=== PATIENT | female | born 1950 | race Caucasian/White ===

== ENCOUNTER → 2023-11-23 08:40 | Outpatient (REF) | payer MEDICARE, BC, SELFPAY | LOC: RAD 08:40 | PROVIDERS: ATTENDING PHYSICIAN Internal Medicine Hematology & Oncology; FAMILY PHYSICIAN Physician Assistant Medical | DX: R22.41 Localized swelling, mass and lump, right lower limb (principal) | CPT/HCPCS: 73660; 76882 ==

== ENCOUNTER → 2024-02-17 07:40 | Outpatient (REF) | payer MEDICARE, BC, SELFPAY | LOC: RAD 07:40 | PROVIDERS: ATTENDING PHYSICIAN Surgery Vascular Surgery; FAMILY PHYSICIAN Physician Assistant Medical; REFERRING PHYSICIAN Podiatrist Foot Surgery | DX: L08.9 Local infection of the skin and subcutaneous tissue, unspecified (principal) | CPT/HCPCS: 93922; 93925 ==

== ENCOUNTER → 2024-02-25 10:25 | Outpatient (REF) | payer OTHER, SELFPAY | LOC: HWRAD 10:25 | PROVIDERS: ATTENDING PHYSICIAN Psychiatry & Neurology Neurology; FAMILY PHYSICIAN Physician Assistant Medical | DX: M46.1 Sacroiliitis, not elsewhere classified (principal); K59.03 Drug induced constipation; Z79.891 Long term (current) use of opiate analgesic; Z51.81 Encounter for therapeutic drug level monitoring; M47.816 Spondylosis without myelopathy or radiculopathy, lumbar region; I10 Essential (primary) hypertension; M96.1 Postlaminectomy syndrome, not elsewhere classified | CPT/HCPCS: 72192 ==

== ENCOUNTER → 2024-05-17 13:17 | Outpatient (REF) | payer MEDICARE, BC, SELFPAY ==
[2024-05-17 14:42] LABS: % Basophils 2.1 % (0-2); % Eosinophils 4.2 % (0-6); % Immature Granulocytes 0.7 % (0-0.5); % Lymphocytes 22.4 % (20.5-51.1); % Monocytes 10.5 % (1.7-9.3); % Neutrophils 60.1 % (42.2-75.2); Absolute Basophils 0.1 10^3/uL (0-0.2); Absolute Eosinophils 0.1 10^3/uL (0-0.7); Absolute Lymphocytes 0.6 10^3/uL (1.2-3.4); Absolute Monocytes 0.3 10^3/uL (0.1-0.6); Absolute Neutrophils 1.7 10^3/uL (1.4-6.5); Hematocrit 36.8 % (37.0-47.0); Hemoglobin 12.9 g/dL (12.0-16.0); Mean Corp Hgb Conc. 35.1 g/dL (33.0-37.0); Mean Corpuscular Hgb 32.6 pg (27.0-31.0); Mean Corpuscular Volume 92.9 fL (81.0-99.0); Mean Platelet Volume 10.4 fL (7.4-10.4); Nucleated Red Blood Cells % 0 %; Platelet Count 157 10^3/uL (130-400); Red Blood Cell Count 3.96 10^6/uL (4.20-5.40); Red Cell Dist. Width 12.9 % (11.5-14.5); White Blood Cell Count 2.9 10^3/uL (4.8-10.8)
[2024-05-17 14:56] LABS: ALT (SGPT) 27 U/L (0-35); AST (SGOT) 24 U/L (14-36); Albumin 4.2 g/dl (3.5-5.0); Alkaline Phosphatase 68 U/L (38-126); Blood Urea Nitrogen 24 mg/dl (7-17); Calcium 9.3 mg/dl (8.4-10.2); Carbon Dioxide 32 mmol/L (22-30); Chloride 102 mmol/L (98-107); Glucose 115 mg/dl (70-99); Potassium 4.2 mmol/L (3.5-5.1); Sodium 143 mmol/L (135-145); Total Bilirubin 1.1 mg/dl (0.2-1.3); Total Protein 6.5 g/dl (6.3-8.2); eGFR > 60.00
== END ==
LOC: REG 13:17
PROVIDERS: ATTENDING PHYSICIAN Internal Medicine Hematology & Oncology; FAMILY PHYSICIAN Physician Assistant Medical
DX: C90.00 Multiple myeloma not having achieved remission (principal)
CPT/HCPCS: 36415; 80053; 82784; 83521; 84155; 84165; 85025; 86334

== ENCOUNTER → 2024-05-19 12:34 | Outpatient (REF) | payer MEDICARE, BC, SELFPAY | LOC: PAVMRI 12:34 | PROVIDERS: ATTENDING PHYSICIAN Physician Assistant Surgical; FAMILY PHYSICIAN Physician Assistant Medical | DX: M46.1 Sacroiliitis, not elsewhere classified (principal); M96.1 Postlaminectomy syndrome, not elsewhere classified; M47.816 Spondylosis without myelopathy or radiculopathy, lumbar region | CPT/HCPCS: 72148 ==

== ENCOUNTER → 2024-09-21 16:28 | Outpatient (REF) | payer MEDICARE, BC, SELFPAY | LOC: RAD 16:28 | PROVIDERS: ATTENDING PHYSICIAN Physician Assistant Medical | DX: G44.319 Acute post-traumatic headache, not intractable (principal); R51.9 Headache, unspecified | CPT/HCPCS: 70150; 70450 ==

== ENCOUNTER → 2025-04-02 10:29 | Outpatient (REF) | payer MEDICARE, BC, SELFPAY | LOC: EMG 10:29 | PROVIDERS: ATTENDING PHYSICIAN Psychiatry & Neurology Neurology; FAMILY PHYSICIAN Physician Assistant Medical | DX: M54.17 Radiculopathy, lumbosacral region (principal); R20.0 Anesthesia of skin | CPT/HCPCS: 95886; 95908 ==

== ENCOUNTER 2025-07-02 15:23 | Inpatient (IN) | payer MEDICARE, BC, SELFPAY ==
[2025-07-02] VITALS (8 sets, daily range): BP systolic 126–172; BP diastolic 55–94; BMI 27.2; BMI 26.3
[2025-07-02] MEDS: ZOFRAN 4 MG IV (02:28)
[2025-07-02] MEDS: DILAUDID 0.5 MG IV ×4 (02:29→11:40)
[2025-07-02 02:57] LABS: Hematocrit 37.0 % (37.0-47.0); Hemoglobin 12.7 g/dL (12.0-16.0); Mean Corp Hgb Conc. 34.3 g/dL (33.0-37.0); Mean Corpuscular Volume 90.0 fL (81.0-99.0); Nucleated Red Blood Cells % 0 %; Platelet Count 188 10^3/uL (130-400); Red Cell Dist. Width 13.9 % (11.5-14.5)
[2025-07-02] MEDS: TORADOL 15 MG IV ×4 (03:09→22:32)
[2025-07-02 03:16] LABS: ALT (SGPT) 28 U/L (0-35); AST (SGOT) 23 U/L (14-36); Albumin 4.2 g/dl (3.5-5.0); Alkaline Phosphatase 52 U/L (38-126); Blood Urea Nitrogen 27 mg/dl (7-17); Calcium 8.8 mg/dl (8.4-10.2); Carbon Dioxide 33 mmol/L (22-30); Chloride 101 mmol/L (98-107); Estimated Creatinine Clearance 62 ml/min; Glucose 101 mg/dl (70-99); Potassium 3.4 mmol/L (3.5-5.1); Sodium 137 mmol/L (135-145); Total Protein 6.7 g/dl (6.3-8.2); eGFR > 60.00
[2025-07-02] MEDS: NSS 1000 IV (03:59)
--- NOTE | 2025-07-02 04:54 | ED.GENMED ---
History of Present Illness
General
Chief Complaint: Back Pain
Time Seen by Provider: 07/02/25 02:02
History of Present Illness
History of Present Illness:
Note:
CHIEF COMPLAINT(S)
Weakness, urinary frequency and incontinence, worsening back pain, and leg weakness.
HISTORY OF PRESENT ILLNESS
The patient is a 74-year-old female who initially presented with weakness after experiencing a fall five weeks ago. During the fall, while in [place], she did not receive immediate medical attention. The following day, however, she was
diagnosed with a subarachnoid hemorrhage in [place] after presenting to the ER with altered mental status. Thereafter, she had some improvement but experienced a recent exacerbation of symptoms following a flight back home.
Today, the patient reports increased weakness in the legs, difficulty with movement, and frequent urination that was not as severe when she was staying with family prior to her flight. She also experiences leg jumping, which is new today, and
increased shuffling when walking. Additionally, she is experiencing episodes of urinary frequency with significant urgency, although she remains continent. The leg weakness and back pain have also worsened recently. Furthermore, there is a history
of constipation, although no bowel incontinence has been reported. She describes a recent reemergence of confusion and headache, which was previously a 10 out of 10 in pain severity.
Plan includes imaging studies of the head and lumbar spine to assess for potential causes such as cauda equina syndrome and urinary tract infection.
PAST MEDICAL AND SURIGICAL HISTORY
Subarachnoid hemorrhage five weeks prior to this visit following a fall. The history includes post-fall urinary issues likely related to catheterization.
ADDITIONAL HISTORY OBTAINED FROM SOURCES OTHER THAN THE PATIENT
Per the patient�s daughter, the patient had a fall five weeks ago. She was initially seen at an emergency room and diagnosed with a subarachnoid hemorrhage. The patient has been experiencing increasing difficulty in mobility and increased urinary
frequency. The daughter reported challenges in securing adequate medical records and care coordination during the patients time in [place]. The patient�s situation has worsened enough to necessitate increased caregiving support at home, leading
to this current medical evaluation.
EXTERNAL RECORDS REVIEWED
The conversation mentions unsuccessful attempts to acquire medical records from the patients hospital stay in [place], despite efforts to request them for continuity of care.
SOCIAL DETERMINANTS AFFECTING HEALTH
Per the patient�s daughter, there were significant logistic and care coordination issues during the patients stay in [place], impacting her access to timely and consistent healthcare. Additionally, there is a mention of the increased need for
caregiving support at home due to the patients medical needs.
REVIEW OF SYSTEMS
- Neurological: Weakness in legs, jumping legs, worsening leg movement, occasional confusion.
- Genitourinary: Increased urinary frequency with urgency but maintained continence.
- Musculoskeletal: Back pain, worsening leg weakness and shuffling gait.
PHYSICAL EXAM
General: Alert, no acute distress.
Skin: Warm, dry.
Head: Normocephalic, atraumatic.
Neck: Supple, trachea midline.
Eye Ears, Nose, Mouth, and Throat: Oral mucosa moist.
Cardiovascular: Normal peripheral perfusion, no edema.
Respiratory: Respirations are non-labored.
Gastrointestinal: Abdomen nondistended
Back: Normal range of motion, normal alignment.
Musculoskeletal: Normal ROM, normal strength.
Neurological: Alert and oriented to person, place, time, and situation, no focal neurological deficit observed.
Psychiatric: Cooperative, appropriate mood & affect.
PROBLEM LIST
Acute:
- Subarachnoid hemorrhage, status post recent fall.
- Urinary frequency and incontinence.
- Worsening back pain and leg weakness.
PLAN
1. Perform a computed tomography scan of the head to reassess the subarachnoid hemorrhage.
2. Conduct lumbar spine imaging to evaluate for possible cauda equina syndrome.
3. Evaluate urine for urinary tract infection.
4. Administer morphine for the management of pain.
DIFFERENTIAL DIAGNOSIS
The Differential Diagnosis includes, in no particular order and is not limited to:
1. Urinary tract infection
2. Cauda equina syndrome
3. Neurological effects post-subarachnoid hemorrhage
4. Spinal stenosis
5. Lumbar radiculopathy
6. Depression or anxiety contributing to symptoms
7. Adverse effects of medications
8. Sacral fracture or injury
9. Diabetic neuropathy
10. Aging-related functional decline
Disposition:
SUMMARY OF ENCOUNTER
The patient, a 74-year-old female, presented with exacerbated low back pain and urinary incontinence upon returning home from a five-week stay in [place]. Initially diagnosed with a subarachnoid hemorrhage during her stay, she was cleared to fly
home, but symptoms worsened upon landing. The patients nurse noted new episodes of incontinence over the past week. While she maintains some bladder control, she experienced increasing incontinence. During her visit to the emergency department, she
received multiple doses of pain medication for pain management. Due to persistent symptoms, the decision was made to admit her to the hospital for further evaluation and possible imaging.
DISPOSITION
Admit
PLAN
Admit the patient for further evaluation, management of low back pain, and urinary incontinence. Possible further imaging to be considered.
MEDICATION RECONCILIATION
The patient received multiple doses of pain medication during the emergency department visit.
MEDICAL DECISION MAKING
- Number and Complexity of Problems Addressed: Chronic conditions affecting care including acute exacerbation of back pain, subarachnoid hemorrhage history, and urinary incontinence. Differential Diagnosis includes urinary tract infection, cauda
equina syndrome, neurological effects post-subarachnoid hemorrhage, spinal stenosis, lumbar radiculopathy, depression or anxiety contributing to symptoms, adverse effects of medications, sacral fracture or injury, diabetic neuropathy, and
aging-related functional decline.
- Risk: The decision to admit was based on the complexity and risk of the patients presenting complaints and worsening symptoms. Social determinants affecting health noted logistics and care coordination issues, which have impacted her health.
Phy Exam
Physical Exam
Physical Exam:
.
Course
Orders/Labs/Results
Orders:
Orders
07/02/25 02:20
CT Head W/o Iv Contrast Urgent
Comment:
Reason For Exam: 5wks s/p SAH, weakness
CT Lumbar Spine W/o Iv Contras Urgent
Comment:
Reason For Exam: acute on Chronic LBP, intermittant incontinence
07/02/25 02:26
HYDROmorphone [Dilaudid] 0.5 mg .ROUTE .STK-MED ONE
Ondansetron Injectable [Zofran] 4 mg .ROUTE .STK-MED ONE
07/02/25 02:27
Ondansetron Injectable [Zofran] 4 mg IV NOW STA
07/02/25 02:29
HYDROmorphone [Dilaudid] 0.5 mg IV NOW STA
07/02/25 02:50
Complete Blood Count/With Diff Urgent
Comprehensive Metabolic Panel Urgent
07/02/25 02:59
Ketorolac [Toradol] 15 mg IV NOW STA
07/02/25 04:00
0.9% Sodium Chloride 1000 ml [Nss] 1,000 ml IV 250 mls/hr
07/02/25 04:57
HYDROmorphone [Dilaudid] 0.5 mg IV NOW STA
Abnormal Lab Results
07/02/25
02:50
RBC 4.11 L 10^6/uL
(4.20-5.40)
Absolute Monos (auto) 1.0 H 10^3/uL
(0.1-0.6)
Monocytes % 15.7 H %
(1.7-9.3)
Potassium 3.4 L mmol/L
(3.5-5.1)
Carbon Dioxide 33 H mmol/L
(22-30)
BUN 27 H mg/dl
(7-17)
Glucose 101 H mg/dl
(70-99)
Total Bilirubin 1.6 H mg/dl
(0.2-1.3)
07/02/25 02:50
07/02/25 02:50
Vital Signs
Initial and Last Documented VS:
Initial Vital Signs
Temp Pulse Resp BP Pulse Ox
98 F 104 28 172/94 98
07/02/25 01:45 07/02/25 01:45 07/02/25 01:45 07/02/25 01:45 07/02/25 01:45
Last Documented Vital Signs
Temp Pulse Resp BP Pulse Ox
98 F 86 14 132/55 98
07/02/25 01:45 07/02/25 05:15 07/02/25 05:15 07/02/25 05:00 07/02/25 05:15
*Pulse Oximetry
SaO2: 99
Oxygen Mode of Delivery: Room air
Patient hypoxic: no
*Critical Care Note
Total Time (30-74mins, 75-104mins- exclusive of procedures): Not Applicable
Update Note
Update Note:
NAME: MANUEL ARAUJO
DATE OF EXAM: 07/02/2025
Patient No:
Physician: MARILOU
Date of : 1950
Past Medical History (entered by Technologist):
Reason For Exam (entered by Technologist):
Other Notes (entered by Technologist): PT FELL 5 WEEKS AGO IN [place] HAD SAH. PT FLEW HOME TODAY AND HAS BEEN HAVING WEAKNESS, URINARY INCONTINENCE, RESTLESSNESS, AND BACK PAIN.
Prior sent
Additional Information (per [facility]):
CT HEAD WITHOUT CONTRAST
COMPARISON: 09/21/2024
IMPRESSION:
No acute intracranial hemorrhage. No evidence of acute infarct.
No mass effect or midline shift.
Unchanged ventriculomegaly
Visualized paranasal sinuses and mastoids are clear.
No calvarial lesion.
CT LUMBAR SPINE WITHOUT CONTRAST
COMPARISON: 04/28/2021
IMPRESSION:
Spinal stimulator in the thoracic and lumbar spinal canal entering at L3/4 is unchanged. Interval removal of the other stimulator in the distal thoracic spinal canal.
No fracture or traumatic malalignment.
Unchanged grade 1 anterolisthesis L3 on L4. L4/5, L5/S1 fusion. Interval right sacroiliac joint attempted fusion without definite bridging bone across the joint.
No soft tissue abnormality.
Visualized abdomen is unremarkable.
Case finalized on 07/02/25 04:06 EDT
ED Attending Note
-
Portions of this chart may have been created with voice recognition software.� Occasional wrong word or��sound alike� substitutions may have occurred due to the inherent limitations of voice recognition software.
Discharge Plan
Departure
Patient Disposition: Admit
Date of Disposition: 07/02/25
Time of Disposition: 05:32
Admit to: Telemetry
Presentation/result/management discussed w/ accepting MD/DO: Hospitalist
Discharge Problem:
Low back pain, Subacute urinary incontinence
Prescriptions:
No Action
atorvastatin 40 MG tablet
40 mg PO QPM
venlafaxine 75 MG capsule,extended release 24hr
150 mg PO DAILY
hydromorphone [Dilaudid] 8 MG tablet
8 mg PO HS
lubiprostone 24 MCG capsule
24 mcg PO BID
diclofenac epolamine [Flector] 1 EACH patch 12 hour
1 ea TD Q12H PRN (Reason: pain)
Fentanyl Pump.Resvr
223 mcg INFUSION DAILY
Patient Comments:
with Baclofin 53 ug and bupivicaine 2.3mg via pump over 24 hrs
Lidocaine Patch Patch
5 % topical PRN MDD 3 patches PRN (Reason: pain)
ascorbic acid (vitamin C) 250 MG tablet
500 mg PO DAILY
diphenhydramine HCl [Banophen] 25 MG capsule
50 mg PO HSPRN PRN (Reason: sleep)
calcium carbonate-vitamin D3 1 EACH tablet
1 ea PO BID
cholecalciferol (vitamin D3) [Vitamin D3] 2,000 UNIT capsule
2,000 unit PO DAILY
aspirin 81 MG tablet,delayed release (DR/EC)
81 mg PO DAILY
trazodone 50 MG tablet
100 mg PO HS
methocarbamol [Robaxin-750] 750 MG tablet
750 mg PO Q8 PRN (Reason: pain)
hydromorphone [Dilaudid] 4 MG tablet
4 mg PO BID
Referrals:
Helga Cummings PA [Family Provider, Family Practice]
Interventions
Interventions:
*Risk Screen - Suicide Last Done: 07/02/25 01:45
*General Assessment Last Done: 07/02/25 01:59
*Neglect/Abuse Screening Last Done: 07/02/25 01:45
*ED- Fall Risk Assessment Last Done: 07/02/25 01:59
*ED COVID-19 Vaccine History Last Done: 07/02/25 01:59
*ED Influenza Vaccine History Last Done: 07/02/25 01:59
ED-Musculoskeletal Assessment Last Done: 07/02/25 01:59
Discharge Date and Time
Print Language: WELSH
--- NOTE | 2025-07-02 05:06 | HPS.HSE ---
Family Physician
-
Family Physician: Helga Cummings
Chief Complaint
-
Back pain
History of Present Illness
74-year-old female was past medical history significant for multiple myeloma currently on Revlimid and dexamethasone, chronic urinary symptoms on nitrofurantoin, chronic pain secondary to chronic back pain status post failed back surgery, status
post implanted Medtronic fentanyl close baclofen epidural pain pump, status post spinal stimulator, PVCs, bladder cancer status post tumor excision, presents to the emergency department with intractable back pain, weakness and ambulatory dysfunction.
Patient just returned from a trip to [place]. During that trip about 5 weeks ago he had a fall and suffered subarachnoid hemorrhage. She also had worsening pain and did not undergo appropriate rehabilitation according to daughter. Patient just
arrived back from [place]. During the plane flight she was extremely uncomfortable. It is unclear whether she was able to take her medications as prescribed. She also had incontinence and urinary urgency/frequency as she was getting up and
down several times during the flight and daughter had to help ice time due to weakness and pain. Once they arrived at home patient had significant difficulty with ambulation due to leg weakness and pain and was brought to the emergency department.
She has had multiple exacerbations of back pain in the past but does not appear to be as severe as these. Patient reports chronic numbness and weakness of her lower extremities but not as states that this is worse than baseline. She has urinary
urgency without incontinence for which is also c/o dyspnea. She has no incontinence of the bowel. She has had no fevers or chills. She has no nausea or vomiting.
In the emergency department she was afebrile, blood pressure was 126/57 with a pulse rate of 78 and she was satting 99% on room air.
CBC was unremarkable, electrolytes were stable with a bicarb of 83 BUN and creatinine of 27 and 0.8. Total bilirubin was slightly elevated at 1.6 but otherwise LFTs were normal.
Head CT without contrast was unremarkable for any acute intracranial process. The CT of the lumbar spine shows a spinal stimulator and a thoracic and lumbar spinal canal at the L3/4 which is unchanged. No fracture or traumatic malalignment. There
is evidence of interval right sacroiliac joint attempted fusion without definite bridging bone across the joint.
Medical History
Past Medical History
Past Medical History: Reports Arrhythmia (PVCs), Cancer (Cancer status post excision, multiple myeloma (plasmacytoma)), HTN, Hypercholesterolemia and Other
Additional Past Medical History:
Lumbar disc disease
Herniated disc at L4-5 and L5-S1.
Past Surgical History: Reports Gynocological (Partial hysterectomy), Orthopedic (Right total knee arthroplasty), Urological (Bladder tumor excision) and Other (Stem cell transplantation)
Social History
Tobacco: Non-smoker
Alcohol: None
Drug: None
Family History
Family History: Not pertinent
Allergies / Home Medications
Allergies reflects when Allergies were last updated in [facility].
Home Medications with original date entered in [facility]
Allergy/Medication List:
Allergies
Allergy/AdvReac Type Severity Reaction Status Date / Time
chocolate flavor Allergy Rash Verified 07/02/25 01:48
Penicillins Allergy Rash Verified 07/02/25 01:48
vancomycin Allergy red man Verified 07/02/25 01:48
syndrome
band aid adhesive Allergy Rash Uncoded 07/02/25 01:48
Home Medications
Fentanyl 223 mcg INFUSION DAILY 09/14/18
Lidocaine Patch 5 % topical PRN PRN pain 09/14/18
ascorbic acid (vitamin C) 250 mg tablet 500 mg PO DAILY 09/14/18
atorvastatin 40 mg tablet 40 mg PO QPM 09/14/18
calcium 500 mg (as carbonate)-vitamin D3 3.125 mcg (125 unit) tablet 1 ea PO BID 09/14/18
cholecalciferol (vitamin D3) 50 mcg (2,000 unit) capsule (Vitamin D3) 2,000 unit PO DAILY 09/14/18
diclofenac epolamine 1.3 % transdermal 12 hour patch (Flector) 1 ea TD Q12H PRN pain 09/14/18
diphenhydramine HCl 25 mg capsule (Banophen) 50 mg PO HSPRN PRN sleep 09/14/18
hydromorphone 8 mg tablet (Dilaudid) 8 mg PO HS 09/14/18
lubiprostone 24 mcg capsule 24 mcg PO BID 09/14/18
venlafaxine 75 mg capsule,extended release 24 hr 150 mg PO DAILY 09/14/18
aspirin 81 mg tablet,delayed release 81 mg PO DAILY 12/13/19
methocarbamol 750 mg tablet (Robaxin-750) 750 mg PO Q8 PRN pain 12/13/19
trazodone 50 mg tablet 100 mg PO HS 12/13/19
hydromorphone 4 mg tablet (Dilaudid) 4 mg PO BID 12/25/19
Review of Systems
-
Constitutional: Reports No Symptoms
EENT: Reports No Symptoms
Respiratory: Reports No Symptoms
Cardiac: Reports No Symptoms
Abdomen/GI: Reports No Symptoms
: Reports Frequency and Urgency
Musculoskeletal: Reports Other (Back pain)
Skin: Reports No Symptoms
Neurological: Reports Weakness
Endocrine: Reports No Symptoms
Hematologic/Lymphatic: Reports No Symptoms
Psych: Reports No Symptoms
Physical Exam
Vital Signs
Vital Signs
Temp Pulse Resp BP Pulse Ox
98 F 78 13 126/57 99
07/02/25 01:45 07/02/25 04:45 07/02/25 04:45 07/02/25 04:00 07/02/25 04:55
Physical Exam
General: Pain
HEENT: NormoCephalic, Moist mucous membranes, Atraumatic, PERRLA and [place] Conjunctivae
Respiratory: Clear
Cardiac: S1/S2 and Regular Rhythm; No Murmur or Rub
GI: Soft, Non Tender, Non Distended and Normal Bowel Sounds; No Organomegaly
Rectal: Deferred by Provider
Genito-urinary: Clear Urine
Musculoskeletal: No Clubbing, No Cyanosis and No Edema
Skin: No Rash
Neuro: AO x 3 and No Sensory Deficits; No Slurred Speech or Facial Droop
Psych: Anxious
Laboratory Results
-
07/02/25 02:50
07/02/25 02:50
Laboratory Results
Total Bilirubin 1.6 mg/dl (0.2-1.3) H 07/02/25 02:50
AST 23 U/L (14-36) 07/02/25 02:50
ALT 28 U/L (0-35) 07/02/25 02:50
Alkaline Phosphatase 52 U/L (38-126) 07/02/25 02:50
Data Reviewed
-
CT Scan: Report Reviewed by me
Lab Data: Labs Reviewed by me
Old Records: Reviewed
Impression/Plan
-
IMPRESSION:
74-year-old female with past medical history who back pain with failed back surgery status post Medtronic pain pump, status post spinal stimulator, chronic pain requiring breakthrough opioid medications will presents with exacerbation of chronic
back pain likely in the setting of 4 recent fall and plane flight from [place]. Days associated with weakness in bilateral lower extremities as well as some urinary symptoms. Most likely weakness or secondary to uncontrolled pain but cannot
rule out myelopathy entirely. No recent lumbosacral spine imaging with MRI in our system. Patient likely has a high opioid tolerance and will need aggressive pain control.
PLAN:
Back pain -exhibition of back pain secondary to trauma and recent flight.
� Admit to MedSurg
� Continue patient ongoing pump
� Add acetaminophen [id number]
� Toradol
� Dilaudid 1 mg every 3 hours for breakthrough pain
- Will give 1 dose of Decadron now
� Urinalysis (clean-catch)
� MRI lumbar spine
� PT consultation
Multiple myeloma�
� Continue patient's Revlimid 5 mg at bedtime for the next 21 days
� While on Revlimid continue dexamethasone 4 mg on Wednesday
Hypertension
� Continue losartan and metoprolol
DVT prophylaxis�Lovenox subcu
CODE STATUS�full code
[2025-07-02] MEDS: DILAUDID 1 MG IV ×2 (05:46→08:38)
[2025-07-02] MEDS: DECADRON 10 MG IV (06:29)
--- NOTE | 2025-07-02 07:57 | W.PN.HOSP.TC ---
Today's Communication/Plan
-
pain control
steroids
Brain Lumbar MRI
Neuro eval
PT/OT
Assessment / Plan
Assessment / Plan
Physical Exam
General: mild moderate distress d/t lower back pain
HEENT: NormoCephalic, Moist mucous membranes, Atraumatic, PERRLA and [place] Conjunctivae
Respiratory: Clear
Cardiac: S1/S2 and Regular Rhythm; No Murmur or Rub
GI: Soft, Non Tender, Non Distended and Normal Bowel Sounds; No Organomegaly
Genito-urinary: Clear Urine
Musculoskeletal: No Clubbing, No Cyanosis and No Edema, lower paraspinal tenderness
Skin: No Rash
Neuro: AO x 3 conversant largely coherent, mentation seems slow at times
Psych: Anxious
IMPRESSION:
74-year-old female with past medical history who back pain with failed back surgery status post Medtronic pain pump, status post spinal stimulator, chronic pain requiring breakthrough opioid medications will presents with exacerbation of chronic
back pain likely in the setting of 4 recent fall and plane flight from [place]. Days associated with weakness in bilateral lower extremities as well as some urinary symptoms. Most likely weakness or secondary to uncontrolled pain but cannot
rule out myelopathy entirely. No recent lumbosacral spine imaging with MRI in our system. Patient likely has a high opioid tolerance and will need aggressive pain control.
PLAN:
Back pain -exhibition of back pain secondary to trauma and recent flight.
� Admit to MedSurg
� Continue patient ongoing pump
� Tylenol Q4HWA
� Toradol prn, Protonix gi ppx
� Dilaudid 1 mg increased to 1.5 mg every 3 hours for severe pain
- IV Decadron 4 mg Q8H
� Urinalysis not suggestive of UTI
� MRI lumbar spine pending
� PT/OT consultation appreciated SNF rehab
-Lidocaine patches, Ice packs prn
Significant Precipitous Cognitive decline
Suspect Metabolic encephalopathy vs Delirium d/t pain poor sleep
Hx subarachnoid hemorrhage following fall last month, treated in [place]
-CT Head appreciated no acute abn's
-Brain MRI pending
-Neuro eval requested
-pain control
-resume home trazodone 100 mg HS
Multiple myeloma�
� Continue patient's Revlimid 5 mg at bedtime for the next 21 days
� While on Revlimid pt is on dexamethasone 4 mg on Wednesday (substituted for IV Decadron as above)
Hypertension
� Continue losartan and metoprolol
Constipation
-bowel regiment
- Abd X-ray appreciated limited study, no obstruction
Discussed with patient and patient's daughter RN Natalie
DVT prophylaxis�Lovenox subcu
CODE STATUS�full code
I spent a total of 50 minutes with the patient or on the floor. More than 50% of this time involved counseling and coordination of care.
Anticipated Discharge: 24 - 48 hours
Subjective/Interval History
-
Date of Service: July 02, 2025
Fluctuating mental status throughout day. AOx3 conversant coherent at time of evaluation though some confusion noted. Back pain remains significant with associate poor sleep. Patient also reporting constipation
Objective Data
-
Labs:
Laboratory Results
07/02/25
02:50
WBC 6.1
Hgb 12.7
Hct 37.0
Plt Count 188
Sodium 137
Potassium 3.4 L
Chloride 101
Carbon Dioxide 33 H
BUN 27 H
Creatinine 0.8
Glucose 101 H
Calcium 8.8
Total Bilirubin 1.6 H
AST 23
ALT 28
Alkaline Phosphatase 52
Vital Signs:
Vital Signs
Temp Pulse Resp BP Pulse Ox
98 F 90 13 132/55 95
07/02/25 01:45 07/02/25 06:15 07/02/25 06:15 07/02/25 05:00 07/02/25 06:15
[2025-07-02] MEDS: TYLENOL 650 MG PO ×4 (08:39→19:27)
[2025-07-02] MEDS: CYMBALTA DELAYED RELEASE 60 MG PO (08:39)
[2025-07-02] MEDS: ASPIR LOW (ENTERIC COATED) 81 MG PO (08:39)
[2025-07-02] MEDS: COZAAR 100 MG PO (08:39)
[2025-07-02] MEDS: LIDOCAINE 4% PATCH 1 PATCH TOPICAL (08:51)
[2025-07-02] MEDS: NON-FORMULARY ITEM PO (08:52)
[2025-07-02] MEDS: NON-FORMULARY ITEM INFUSION (08:52)
[2025-07-02] MEDS: NSS IV (08:54)
[2025-07-02] MEDS: PROTONIX 40 MG PO (09:11)
--- NOTE | 2025-07-02 10:00 | PTCARENOTE ---
Received patient from ED around 8:30 AM. Unable to leave the room because patient is not redirectable, constantly tries to get out of bed and is a high fall risk. Notified nursing purchasing and claims supervisor and nurse human resources safety manager of fall risk concern. Patient placed on
1:1.
[2025-07-02] MEDS: NON-FORMULARY ITEM 223 MCG INFUSION (10:36)
[2025-07-02] MEDS: KCL 40 MEQ PO (11:40)
[2025-07-02] MEDS: LIDOCAINE 4% PATCH 2 PATCH TOPICAL (11:41)
[2025-07-02] MEDS: KEPPRA 500 MG PO ×2 (11:41→19:27)
[2025-07-02] MEDS: TOPROL XL 50 MG PO (11:42)
[2025-07-02] MEDS: DULCOLAX 10 MG RECTAL (12:14)
[2025-07-02] MEDS: SENOKOT-S 1 TABLET PO ×2 (12:14→19:27)
[2025-07-02 12:56] LABS: Urine Character Clear (Clear)
[2025-07-02 13:02] LABS: Urine Squamous Cell 21-25 /LPF (Few)
[2025-07-02] MEDS: DILAUDID 1.5 MG IV ×4 (13:43→22:33)
[2025-07-02] MEDS: DECADRON 4 MG IV ×2 (13:44→22:34)
--- NOTE | 2025-07-02 15:47 | CM ---
Alert forgetful patient who had a fall 5 week ago and was visiting in [place] and dgt flew her home for decreased ability to care for self. She is assisted and all ADLs. she uses walker an cane.Spoke with Natalie she requested MD call MD notified
.Julienne reviewed . Reviewed MAZARIEGOS with dgt.
Walker cane
Pharmacy [facility] unsure of location
PCP DR Cummings
PLAN Discharge plan ongoing.
[2025-07-02] MEDS: LOVENOX 40 MG SC (17:45)
[2025-07-02] MEDS: REMOVE LIDOCAINE PATCH 2 PATCH REMOVE (19:27)
[2025-07-02] MEDS: MELATONIN 5 MG PO (21:06)
[2025-07-02] MEDS: MACRODANTIN 50 MG PO (21:06)
[2025-07-02] MEDS: DESYREL 100 MG PO (21:06)
[2025-07-02] MEDS: NON-FORMULARY ITEM 5 MG PO (21:10)
--- NOTE | 2025-07-02 23:26 | PTCARENOTE ---
pt impulsive confused and uncooperative at times- requires 1-1 for safety- legs are very weak- ambulated at beginning of shift but now having difficulty even getting to commode at bedside- heavy assist of two at this time- severe back pain to point
of being tearful- medicated with prn's see marco antonio- currently sleeping with 1-1 at bedside
[2025-07-03] MEDS: TYLENOL PO ×5 (00:04→20:50)
[2025-07-03] MEDS: DILAUDID 1.5 MG IV ×2 (02:22→05:26)
[2025-07-03] MEDS: TORADOL 15 MG IV ×3 (04:44→17:27)
[2025-07-03] MEDS: DECADRON 4 MG IV ×3 (05:25→22:18)
--- NOTE | 2025-07-03 06:21 | PTCARENOTE ---
refused am labs- phlebotomy will try later
[2025-07-03 07:35] VITALS: BP 136/75
--- NOTE | 2025-07-03 07:47 | W.PN.HOSP.TC ---
Today's Communication/Plan
-
pain control
pending MRI Brain and lumbar spine
Ativan prn MRI
Neuro eval
bowel regimen
Assessment / Plan
Assessment / Plan
Physical Exam
General: no acute distress, appears relatively comfortable at this time
HEENT: NormoCephalic, Moist mucous membranes, Atraumatic, PERRLA and [place] Conjunctivae
Respiratory: Clear
Cardiac: S1/S2 and Regular Rhythm; No Murmur or Rub
GI: Soft, Non Tender, Non Distended and Normal Bowel Sounds; No Organomegaly
Genito-urinary: Clear Urine
Musculoskeletal: No Clubbing, No Cyanosis and No Edema, lower paraspinal tenderness
Skin: No Rash
Neuro: AO x 3 conversant largely coherent, mentation seems slow at times
Psych: calm
IMPRESSION:
74-year-old female with past medical history who back pain with failed back surgery status post Medtronic pain pump, status post spinal stimulator, chronic pain requiring breakthrough opioid medications will presents with exacerbation of chronic
back pain likely in the setting of 4 recent fall and plane flight from [place]. Days associated with weakness in bilateral lower extremities as well as some urinary symptoms. Most likely weakness or secondary to uncontrolled pain but cannot
rule out myelopathy entirely. No recent lumbosacral spine imaging with MRI in our system. Patient likely has a high opioid tolerance and will need aggressive pain control.
PLAN:
Back pain -exhibition of back pain secondary to trauma and recent flight.
� Admit to MedSurg
� Continue patient ongoing pump
� Tylenol Q4HWA
� Toradol prn switched to schedule Q6, Protonix gi ppx
� Dilaudid 1 mg increased to 1.5 mg every 3 hours for severe pain
- IV Decadron 4 mg Q8H
� Urinalysis not suggestive of UTI
� MRI lumbar spine pending, ativan prn for MRI
� PT/OT consultation appreciated SNF rehab
- Lidocaine patches, Ice packs prn
Significant Precipitous Cognitive decline
Suspect Metabolic encephalopathy vs Delirium d/t pain poor sleep
Hx subarachnoid hemorrhage following fall last month, treated in [place]
-CT Head appreciated no acute abn's
-Brain MRI pending, ativan prn for mri
-Neuro eval appreciated
-pain control
-resume home trazodone 100 mg HS
Multiple myeloma�
� Continue patient's Revlimid 5 mg at bedtime for the next 21 days
� While on Revlimid pt is on dexamethasone 4 mg on Wednesday (substituted for IV Decadron as above)
Hypertension
� Continue losartan and metoprolol
Constipation
-bowel regiment
- Abd X-ray appreciated limited study, no obstruction
DVT prophylaxis�Lovenox subcu
CODE STATUS�full code
Discussed with patient and patient's daughter CINDY Natalie
I spent a total of 48 minutes with the patient or on the floor. More than 50% of this time involved counseling and coordination of care.
Anticipated Discharge: 24 - 48 hours
Subjective/Interval History
-
Date of Service: July 03, 2025
Seen and examined at bedside, appears significantly more comfortable compared to yesterday. Continues to report significant 8/10 pain and urinary frequency however. AOx3 conversant coherent at time of evaluation. Noted fluctuant mental status as
day progresses however, suspect .
Objective Data
-
Labs:
Laboratory Results
07/03/25
06:00
WBC Pending
Hgb Pending
Hct Pending
Plt Count Pending
Sodium Pending
Potassium Pending
Chloride Pending
Carbon Dioxide Pending
BUN Pending
Creatinine Pending
Glucose Pending
Calcium Pending
Total Bilirubin Pending
AST Pending
ALT Pending
Alkaline Phosphatase Pending
Vital Signs:
Vital Signs
Temp Pulse Resp BP Pulse Ox
97.3 F 82 16 141/75 94
07/02/25 23:34 07/02/25 23:34 07/02/25 23:34 07/02/25 23:34 07/02/25 23:34
I&O
07/02/25 07/03/25 07/04/25
06:59 06:59 06:59
Intake Total 480 / 480
Output Total 1025 / 1025
Balance -545 / -545
[2025-07-03] MEDS: LIDOCAINE 4% PATCH TOPICAL (09:13)
[2025-07-03] MEDS: SENOKOT-S PO (09:14)
[2025-07-03] MEDS: PROTONIX PO (09:17)
[2025-07-03] MEDS: LIPITOR 20 MG PO (09:18)
[2025-07-03] MEDS: CYMBALTA DELAYED RELEASE 60 MG PO (09:18)
[2025-07-03] MEDS: KEPPRA 500 MG PO ×2 (09:18→20:42)
[2025-07-03] MEDS: TOPROL XL 50 MG PO (09:18)
[2025-07-03] MEDS: COZAAR 100 MG PO (09:19)
[2025-07-03] MEDS: NON-FORMULARY ITEM 223 MCG INFUSION (09:19)
[2025-07-03] MEDS: TYLENOL 650 MG PO ×2 (09:19→12:58)
[2025-07-03] MEDS: ASPIR LOW (ENTERIC COATED) 81 MG PO (09:19)
[2025-07-03 09:42] LABS: Hematocrit 37.0 % (37.0-47.0); Hemoglobin 12.5 g/dL (12.0-16.0); Mean Corp Hgb Conc. 33.8 g/dL (33.0-37.0); Mean Corpuscular Volume 94.4 fL (81.0-99.0); Platelet Count 164 10^3/uL (130-400); Red Cell Dist. Width 13.9 % (11.5-14.5)
[2025-07-03] MEDS: NON-FORMULARY ITEM PO (09:55)
[2025-07-03 09:56] LABS: Ammonia < 9 umol/L (9-30)
[2025-07-03 10:15] LABS: ALT (SGPT) 26 U/L (0-35); AST (SGOT) 23 U/L (14-36); Albumin 3.8 g/dl (3.5-5.0); Alkaline Phosphatase 46 U/L (38-126); Blood Urea Nitrogen 27 mg/dl (7-17); Calcium 8.8 mg/dl (8.4-10.2); Carbon Dioxide 31 mmol/L (22-30); Chloride 102 mmol/L (98-107); Estimated Creatinine Clearance 63 ml/min; Glucose 112 mg/dl (70-99); Magnesium 2.4 mg/dl (1.6-2.3); Potassium 4.2 mmol/L (3.5-5.1); Sodium 135 mmol/L (135-145); Total Protein 6.2 g/dl (6.3-8.2); eGFR > 60.00
[2025-07-03 15:29] VITALS: BP 142/66
--- NOTE | 2025-07-03 15:31 | PTCARENOTE ---
Pt is going to [facility]. Gave report to Ingris WHITE, The family is taking the pt's clothes home. Daughter is taking the pt's medication to the RN. Transport taking pt down now.
--- NOTE | 2025-07-03 16:04 | CM ---
Spoke with dgt Natalie informed her pt changed to inpatient . IMM reviewed and dgt states understaging.
PAC Data left for dgt to review.
PT on 1:1 will need to be off 24 hours for snf placement .
PLAN Will need SNF placement choices
[2025-07-03] MEDS: LOVENOX 40 MG SC (17:26)
--- NOTE | 2025-07-03 18:47 | CON.NEURO4 ---
Consultation - Neurology 4
-
CONSULTING PHYSICIAN: Demetri Morales MD
REFERRING PHYSICIAN: Archana Phoenix MD
DICTATED BY: Demetri Morales
DATE/TIME OF REQUEST: 07/03/2025
DATE/TIME OF CONSULTATION: 07/03/2025
Reason for Consultation: Weakness
Assessment and Plan:
The patient is a 74 years old female with a past medical history of multiple myeloma, history of chronic back pain status post back surgery, status post spinal stimulator placement, who presented to the ER with intractable back pain and difficulty
in ambulation. The patient has returned from a trip to [place] recently, and says that she had some difficulty with ambulation due to leg weakness however she very clearly says that her leg weakness is not worse as compared to her previous leg
weakness, but the back pain has become worse which is making her ambulation more difficult. The patient says that she was able to walk with the help of a walker today.
The patient will need aggressive pain control for the back pain.
MRI of the brain and lumbar spine are pending.
I had a detailed discussion with the patient regarding the assessment and the management plan and the patient verbalized understanding of our discussion.
History of Present Illness:
The patient is a 74 years old female with a past medical history of multiple myeloma, history of chronic back pain status post back surgery, status post spinal stimulator placement, who presented to the ER with intractable back pain and difficulty
in ambulation. The patient has returned from a trip to [place] recently, and says that she had some difficulty with ambulation due to leg weakness however she very clearly says that her leg weakness is not worse as compared to her previous leg
weakness, but the back pain has become worse which is making her ambulation more difficult. The patient says that she was able to walk with the help of a walker today.
Past Medical History: Multiple myeloma, history of chronic back pain status post back surgery, status post spinal stimulator placement,
Review of Systems:
The 10 point review systems was negative aside from as given under the history of present illness.
Neurologic Examination:
The patient is alert and oriented x 3.
The speech is clear.
The cranial nerves II to XII are grossly intact.
The strength is grossly 5/5 bilaterally in the upper extremities and 4/5 bilaterally in the lower extremities.
Sensation is grossly intact bilaterally.
On cerebellar examination there was no limb ataxia seen.
Medications
-
Active Medications
Generic Name Dose Route Start Last Admin
Trade Name Freq PRN Reason Stop Dose Admin
Acetaminophen 650 mg 07/02/25 08:08 07/03/25 15:30
Acetaminophen 325 Mg Tablet PO 07/30/25 08:07 Not Given
Q4HWA DOMINIC
Aspirin 81 mg 07/02/25 08:08 07/03/25 09:19
Aspirin 81 Mg (Enteric Coated) Tablet PO 07/30/25 08:07 81 mg
DAILY DOMINIC Administration
Atorvastatin Calcium 20 mg 07/03/25 08:00 07/03/25 09:18
Atorvastatin (Lipitor) 20 Mg Tablet PO 07/31/25 07:59 20 mg
DAILY DOMINIC Administration
Bisacodyl 10 mg 07/02/25 08:08
Bisacodyl 10 Mg Rectal Suppository RECTAL 07/30/25 08:07
[id number] PRN
constipation
Dexamethasone Sodium Phosphate 4 mg 07/02/25 14:00 07/03/25 14:40
Dexamethasone 4 Mg/Ml 1 Ml Vial IV 07/30/25 13:59 4 mg
Q8H DOMINIC Administration
Duloxetine HCl 60 mg 07/02/25 08:08 07/03/25 09:18
Duloxetine Delayed Release 60 Mg Capsule PO 07/30/25 08:07 60 mg
DAILY DOMINIC Administration
Enoxaparin Sodium 40 mg 07/02/25 18:00 07/03/25 17:26
Enoxaparin Sodium 40 Mg/0.4 Ml Syringe SC 07/30/25 17:59 40 mg
QPM DOMINIC Administration
Hydromorphone HCl 1.5 mg 07/02/25 23:00 07/03/25 05:26
Hydromorphone 0.5 Mg/0.5 Ml Syringe IV 07/16/25 22:59 1.5 mg
Q3HPRN PRN Administration
moderate severe pain
Ketorolac Tromethamine 15 mg 07/03/25 12:00 07/03/25 17:27
Ketorolac 15 Mg/Ml Injection IV 07/08/25 11:59 15 mg
Q6 DOMINIC Administration
Levetiracetam 500 mg 07/02/25 11:00 07/03/25 09:18
Levetiracetam 500 Mg Regular Release Tablet PO 07/30/25 10:59 500 mg
BID DOMINIC Administration
Lidocaine 2 patch 07/02/25 11:30 07/03/25 09:13
Lidocaine 4% Topical Patch TOPICAL 07/30/25 11:29 Not Given
DAILY DOMINIC
Protocol
Lorazepam 0.5 mg 07/03/25 11:21
Lorazepam 0.5 Mg Tablet PO 07/31/25 11:20
ONCE PRN
FOR MRI
Losartan Potassium 100 mg 07/02/25 08:08 07/03/25 09:19
Losartan 100 Mg Tablet PO 07/30/25 08:07 100 mg
DAILY DOMINIC Administration
Melatonin 5 mg 07/02/25 22:00 07/02/25 21:06
Melatonin 5 Mg Tablet PO 07/30/25 21:59 5 mg
HS DOMINIC Administration
Metoprolol Succinate 50 mg 07/02/25 11:00 07/03/25 09:18
Metoprolol 50 Mg Extended Release Tablet PO 07/30/25 10:59 50 mg
DAILY DOMINIC Administration
Nitrofurantoin Macrocrystals 50 mg 07/02/25 22:00 07/02/25 21:06
Nitrofurantoin Macrocrystal 50 Mg Capsule PO 50 mg
HS DOMINIC Administration
Fentanyl Pump.Resvr 0 mcg 07/02/25 08:08 07/03/25 09:19
223mcg/Day INFUSION 07/30/25 08:07 223 mcg
DAILY DOMINIC Administration
Lenalidomide ( 0 mg 07/03/25 22:00
Revlimid) 5 Mg Po PO 07/31/25 21:59
Daily X 21 Days HS DOMINIC
Ondansetron HCl 4 mg 07/02/25 08:08
Ondansetron 4 Mg/2 Ml Vial IV 07/30/25 08:07
Q6HPRN PRN
nausea and vomiting
Pantoprazole Sodium 40 mg 07/02/25 09:00 07/03/25 09:17
Pantoprazole 40 Mg Delayed Release Tablet PO 07/30/25 08:59 Not Given
DAILY DOMINIC
Patch Removal 2 patch 07/02/25 20:00 07/02/25 19:27
Remove Lidocaine Patch REMOVE 07/30/25 19:59 2 patch
DAILY@2000 DOMINIC Administration
Polyethylene Glycol 17 grams 07/03/25 20:00
Polyethylene Glycol Powder 17 Grams Packet PO 07/31/25 19:59
BID DOMINIC
Senna/Docusate Sodium 1 tablet 07/02/25 12:00 07/03/25 09:14
Docusate W/Senna (Maria De Jesus-Colace) Tablet PO 07/30/25 11:59 Not Given
BID DOMINIC
Trazodone HCl 100 mg 07/02/25 22:00 07/02/25 21:06
Trazodone 50 Mg Tablet PO 07/30/25 21:59 100 mg
HS DOMINIC Administration
Home Medications
�Medication �Instructions �Recorded
Fentanyl 251 mcg INFUSION DAILY Pain 09/14/18
aspirin 81 mg tablet,delayed 81 mg PO DAILY Blood Clot 12/13/19
release Prevention/Tx
trazodone 50 mg tablet 100 mg PO HSPRN PRN sleep 12/13/19
atorvastatin 20 mg tablet (Lipitor) 20 mg PO DAILY High Cholesterol 07/02/25
duloxetine 60 mg capsule,delayed 60 mg PO DAILY Depression 07/02/25
release
hydromorphone 4 mg tablet 4 mg PO Q6HPRN PRN severe pains 07/02/25
lenalidomide 5 mg capsule 5 mg PO DIRECTED Cancer 07/02/25
levetiracetam 500 mg tablet 500 mg PO BID Neurological 07/02/25
(Keppra) Condition
losartan 100 mg tablet 100 mg PO DAILY Blood Pressure 07/02/25
metoprolol succinate 50 mg 50 mg PO DAILY Blood Pressure 07/02/25
tablet,extended release 24 hr
(Toprol XL)
nitrofurantoin macrocrystal 50 mg 50 mg PO DAILY exterminator 07/02/25
capsule
potassium chloride 20 mEq 20 meq PO DAILY Electrolyte 07/02/25
tablet,extended release Repletion
methocarbamol 500 mg tablet 500 mg PO TID 07/03/25
Vital Signs and Labs
-
Vital Signs and Labs:
Vital Signs
Temp Pulse Resp BP Pulse Ox
36.3 C 58 16 142/66 98
07/03/25 15:29 07/03/25 15:29 07/03/25 15:29 07/03/25 15:29 07/03/25 15:29
Lab Results
07/03/25 09:35
07/03/25 09:35
Sodium 135 mmol/L (135-145) 07/03/25 09:35
Potassium 4.2 mmol/L (3.5-5.1) 07/03/25 09:35
BUN 27 mg/dl (7-17) H 07/03/25 09:35
Glucose 112 mg/dl (70-99) H 07/03/25 09:35
Calcium 8.8 mg/dl (8.4-10.2) 07/03/25 09:35
Phosphorus 3.3 mg/dl (2.5-4.5) 07/03/25 09:35
[2025-07-03] MEDS: SENOKOT-S 1 TABLET PO (20:42)
[2025-07-03] MEDS: MIRALAX PO (20:43)
[2025-07-03] MEDS: REMOVE LIDOCAINE PATCH 2 PATCH REMOVE (20:43)
[2025-07-03] MEDS: NON-FORMULARY ITEM 5 MG PO (22:14)
[2025-07-03] MEDS: MACRODANTIN 50 MG PO (22:17)
[2025-07-03] MEDS: MELATONIN 5 MG PO (22:17)
[2025-07-03] MEDS: DESYREL 100 MG PO (22:17)
[2025-07-03 23:36] VITALS: BP 122/58
[2025-07-04] MEDS: TYLENOL PO ×4 (02:34→20:48)
[2025-07-04] MEDS: TORADOL IV (02:43)
[2025-07-04] MEDS: TORADOL 15 MG IV ×3 (05:27→17:15)
[2025-07-04] MEDS: DECADRON 4 MG IV ×2 (05:28→17:13)
[2025-07-04] MEDS: TYLENOL 650 MG PO ×4 (05:36→15:45)
[2025-07-04 07:07] LABS: ALT (SGPT) 20 U/L (0-35); AST (SGOT) 15 U/L (14-36); Albumin 3.4 g/dl (3.5-5.0); Alkaline Phosphatase 44 U/L (38-126); Blood Urea Nitrogen 30 mg/dl (7-17); Calcium 8.8 mg/dl (8.4-10.2); Carbon Dioxide 28 mmol/L (22-30); Chloride 106 mmol/L (98-107); Estimated Creatinine Clearance 55 ml/min; Glucose 122 mg/dl (70-99); Potassium 3.9 mmol/L (3.5-5.1); Sodium 136 mmol/L (135-145); Total Protein 5.5 g/dl (6.3-8.2); eGFR > 60.00
[2025-07-04] MEDS: COZAAR 100 MG PO (08:05)
[2025-07-04] MEDS: PROTONIX 40 MG PO (08:05)
[2025-07-04] MEDS: TOPROL XL 50 MG PO (08:05)
[2025-07-04] MEDS: KEPPRA 500 MG PO ×2 (08:05→20:41)
[2025-07-04] MEDS: LIPITOR 20 MG PO (08:05)
[2025-07-04] MEDS: ASPIR LOW (ENTERIC COATED) 81 MG PO (08:05)
[2025-07-04] MEDS: SENOKOT-S 1 TABLET PO (08:05)
[2025-07-04] MEDS: LIDOCAINE 4% PATCH 2 PATCH TOPICAL (08:05)
[2025-07-04] MEDS: CYMBALTA DELAYED RELEASE 60 MG PO (08:05)
[2025-07-04] MEDS: MIRALAX PO ×3 (08:06→20:50)
[2025-07-04] MEDS: NON-FORMULARY ITEM 223 MCG INFUSION (08:06)
--- NOTE | 2025-07-04 08:58 | W.PN.HOSP.TC ---
Today's Communication/Plan
-
cont bowel regimen
pain control
PT/OT
pending MRI
Assessment / Plan
Assessment / Plan
Physical Exam
General: no acute distress, appears relatively comfortable at this time
HEENT: NormoCephalic, Moist mucous membranes, Atraumatic, PERRLA and [place] Conjunctivae
Respiratory: Clear
Cardiac: S1/S2 and Regular Rhythm; No Murmur or Rub
GI: Soft, Non Tender, Non Distended and Normal Bowel Sounds; No Organomegaly
Genito-urinary: Clear Urine
Musculoskeletal: No Clubbing, No Cyanosis and No Edema, lower paraspinal tenderness
Skin: No Rash
Neuro: AO x 3 conversant largely coherent, mentation seems slow at times
Psych: calm
IMPRESSION:
74-year-old female with past medical history who back pain with failed back surgery status post Medtronic pain pump, status post spinal stimulator, chronic pain requiring breakthrough opioid medications will presents with exacerbation of chronic
back pain likely in the setting of 4 recent fall and plane flight from [place]. Days associated with weakness in bilateral lower extremities as well as some urinary symptoms. Most likely weakness or secondary to uncontrolled pain but cannot
rule out myelopathy entirely. No recent lumbosacral spine imaging with MRI in our system. Patient likely has a high opioid tolerance and will need aggressive pain control.
PLAN:
Back pain -exhibition of back pain secondary to trauma and recent flight.
� Admit to MedSurg
� Continue patient ongoing pump
� Tylenol Q4HWA
� Toradol prn switched to schedule Q6, Protonix gi ppx
� Dilaudid 1 mg increased to 1.5 mg every 3 hours for severe pain
- IV Decadron 4 mg Q8H tapered to Q12H w/ improvement symptoms
� Urinalysis not suggestive of UTI
� MRI lumbar spine pending, ativan prn for MRI
� PT/OT consultation appreciated Acute Rehab. Physiatry eval requested
- Lidocaine patches, Ice packs prn
Significant Precipitous Cognitive decline
Suspect Metabolic encephalopathy vs Delirium d/t pain poor sleep
Hx subarachnoid hemorrhage following fall last month, treated in [place]
-CT Head appreciated no acute abn's
-Brain MRI pending, ativan prn for mri
-Neuro eval appreciated
-pain control
-cont home trazodone 100 mg HS
Multiple myeloma�
� Continue patient's Revlimid 5 mg at bedtime for the next 21 days
� While on Revlimid pt is on dexamethasone 4 mg on Wednesday (substituted for IV Decadron as above)
Hypertension
� Continue losartan and metoprolol
Constipation
-bowel regimen
- Abd X-ray appreciated limited study, no obstruction
- Senokot-S increased to 2 tabs BID, refuses Miralax or Enema
DVT prophylaxis�Lovenox subcu
CODE STATUS�full code
Discussed with patient and patient's daughter CINDY Natalie
I spent a total of 45 minutes with the patient or on the floor. More than 50% of this time involved counseling and coordination of care.
Anticipated Discharge: 24 - 48 hours
Subjective/Interval History
-
Date of Service: July 04, 2025
No acute distress, sitting up comfortably in bed. Reports improvement in pain and urinary frequency. Confusion also significantly improved, off one to one.
Objective Data
-
Labs:
Laboratory Results
07/04/25
06:15
Sodium 136
Potassium 3.9
Chloride 106
Carbon Dioxide 28
BUN 30 H
Creatinine 0.8
Glucose 122 H
Calcium 8.8
Total Bilirubin 1.5 H
AST 15
ALT 20
Alkaline Phosphatase 44
Vital Signs:
Vital Signs
Temp Pulse Resp BP Pulse Ox
97.7 F 59 18 122/58 96
07/03/25 23:36 07/03/25 23:36 07/03/25 23:36 07/03/25 23:36 07/04/25 07:30
I&O
07/03/25 07/04/25 07/05/25
06:59 06:59 06:59
Intake Total 480 / 480 600 / 600
Output Total 1025 / 1025
Balance -545 / -545 600 / 600
[2025-07-04 10:09] VITALS: BP 131/75
--- NOTE | 2025-07-04 11:44 | CM ---
Patient daughter Natalie called & would like patient to be evaluated for [facility].
PT 07/02 rec SNF, will re-eval today
OT rec Acute Rehab on 07/02
tt hospitalist regarding physiatry order
PLAN: Acute vs. SNF, when stable
[2025-07-04 12:22] VITALS: BP 160/88; PULSE 56; O2SAT 95
[2025-07-04 12:46] VITALS: BP 160/88; PULSE 56; O2SAT 95
--- NOTE | 2025-07-04 14:52 | W.PN.NEURO.1 ---
Today's Communication / Plan
-
The patient is a 74 years old female with a past medical history of multiple myeloma, history of chronic back pain status post back surgery, status post spinal stimulator placement, who presented to the ER with intractable back pain and difficulty
in ambulation. The patient has returned from a trip to [place] recently, and says that she had some difficulty with ambulation due to leg weakness however she very clearly says that her leg weakness is not worse as compared to her previous leg
weakness, but the back pain has become worse which is making her ambulation more difficult.
MRI of the brain and lumbar spine are pending.
Subjective/Objective
Subjective Data
Date of Service: July 04, 2025
The patient is a 74 years old female with a past medical history of multiple myeloma, history of chronic back pain status post back surgery, status post spinal stimulator placement, who presented to the ER with intractable back pain and difficulty
in ambulation. The patient has returned from a trip to [place] recently, and says that she had some difficulty with ambulation due to leg weakness however she very clearly says that her leg weakness is not worse as compared to her previous leg
weakness, but the back pain has become worse which is making her ambulation more difficult. The patient says that she was able to walk with the help of a walker today.
The patient will need aggressive pain control for the back pain.
Neurologic Examination:
The patient is alert and oriented x 3.
The speech is clear.
The cranial nerves II to XII are grossly intact.
The strength is grossly 5/5 bilaterally in the upper extremities and 4/5 bilaterally in the lower extremities.
Sensation is grossly intact bilaterally.
On cerebellar examination there was no limb ataxia seen.
MRI of the brain and lumbar spine are pending.
Objective Data
Vital Signs
Temp Pulse Resp BP Pulse Ox
37.0 C 61 14 131/75 99
07/04/25 10:09 07/04/25 10:09 07/04/25 10:09 07/04/25 10:09 07/04/25 10:09
Lab Results
07/03/25 09:35
07/04/25 06:15
Sodium 136 mmol/L (135-145) 07/04/25 06:15
Potassium 3.9 mmol/L (3.5-5.1) 07/04/25 06:15
BUN 30 mg/dl (7-17) H 07/04/25 06:15
Glucose 122 mg/dl (70-99) H 07/04/25 06:15
Calcium 8.8 mg/dl (8.4-10.2) 07/04/25 06:15
Phosphorus 3.3 mg/dl (2.5-4.5) 07/03/25 09:35
Patient Allergies
chocolate flavor Allergy (Verified 07/02/25 01:48)
Rash
Penicillins Allergy (Verified 07/02/25 01:48)
Rash
vancomycin Allergy (Verified 07/02/25 01:48)
red man syndrome
band aid adhesive Allergy (Uncoded 07/02/25 01:48)
Rash
Medications
-
Active Medications
Generic Name Dose Route Start Last Admin
Trade Name Freq PRN Reason Stop Dose Admin
Acetaminophen 650 mg 07/02/25 08:08 07/04/25 12:01
Acetaminophen 325 Mg Tablet PO 07/30/25 08:07 650 mg
Q4HWA DOMINIC Administration
Aspirin 81 mg 07/02/25 08:08 07/04/25 08:05
Aspirin 81 Mg (Enteric Coated) Tablet PO 07/30/25 08:07 81 mg
DAILY DOMINIC Administration
Atorvastatin Calcium 20 mg 07/03/25 08:00 07/04/25 08:05
Atorvastatin (Lipitor) 20 Mg Tablet PO 07/31/25 07:59 20 mg
DAILY DOMINIC Administration
Bisacodyl 10 mg 07/02/25 08:08
Bisacodyl 10 Mg Rectal Suppository RECTAL 07/30/25 08:07
[id number] PRN
constipation
Dexamethasone Sodium Phosphate 4 mg 07/04/25 06:00 07/04/25 05:28
Dexamethasone 4 Mg/Ml 1 Ml Vial IV 08/01/25 05:59 4 mg
Q12H DOMINIC Administration
Duloxetine HCl 60 mg 07/02/25 08:08 07/04/25 08:05
Duloxetine Delayed Release 60 Mg Capsule PO 07/30/25 08:07 60 mg
DAILY DOMINIC Administration
Enoxaparin Sodium 40 mg 07/02/25 18:00 07/03/25 17:26
Enoxaparin Sodium 40 Mg/0.4 Ml Syringe SC 07/30/25 17:59 40 mg
QPM DOMINIC Administration
Hydromorphone HCl 1.5 mg 07/02/25 23:00 07/03/25 05:26
Hydromorphone 0.5 Mg/0.5 Ml Syringe IV 07/16/25 22:59 1.5 mg
Q3HPRN PRN Administration
moderate severe pain
Ketorolac Tromethamine 15 mg 07/03/25 12:00 07/04/25 12:00
Ketorolac 15 Mg/Ml Injection IV 07/08/25 11:59 15 mg
Q6 DOMINIC Administration
Levetiracetam 500 mg 07/02/25 11:00 07/04/25 08:05
Levetiracetam 500 Mg Regular Release Tablet PO 07/30/25 10:59 500 mg
BID DOMINIC Administration
Lidocaine 2 patch 07/02/25 11:30 07/04/25 08:05
Lidocaine 4% Topical Patch TOPICAL 07/30/25 11:29 2 patch
DAILY DOMINIC Administration
Protocol
Lorazepam 0.5 mg 07/03/25 11:21
Lorazepam 0.5 Mg Tablet PO 07/31/25 11:20
ONCE PRN
FOR MRI
Losartan Potassium 100 mg 07/02/25 08:08 07/04/25 08:05
Losartan 100 Mg Tablet PO 07/30/25 08:07 100 mg
DAILY DOMINIC Administration
Melatonin 5 mg 07/02/25 22:00 07/03/25 22:17
Melatonin 5 Mg Tablet PO 07/30/25 21:59 5 mg
HS DOMINIC Administration
Metoprolol Succinate 50 mg 07/02/25 11:00 07/04/25 08:05
Metoprolol 50 Mg Extended Release Tablet PO 07/30/25 10:59 50 mg
DAILY DOMINIC Administration
Nitrofurantoin Macrocrystals 50 mg 07/02/25 22:00 07/03/25 22:17
Nitrofurantoin Macrocrystal 50 Mg Capsule PO 50 mg
HS DOMINIC Administration
Fentanyl Pump.Resvr 0 mcg 07/02/25 08:08 07/04/25 08:06
223mcg/Day INFUSION 07/30/25 08:07 223 mcg
DAILY DOMINIC Administration
Lenalidomide ( 0 mg 07/03/25 22:00 07/03/25 22:14
Revlimid) 5 Mg Po PO 07/31/25 21:59 5 mg
Daily X 21 Days HS DOMINIC Administration
Non-Formulary Medication 50 mg 07/04/25 15:00
Mirabegron [Myrbetriq] PO 08/01/25 14:59
DAILY DOMINIC
Ondansetron HCl 4 mg 07/02/25 08:08
Ondansetron 4 Mg/2 Ml Vial IV 07/30/25 08:07
Q6HPRN PRN
nausea and vomiting
Pantoprazole Sodium 40 mg 07/02/25 09:00 07/04/25 08:05
Pantoprazole 40 Mg Delayed Release Tablet PO 07/30/25 08:59 40 mg
DAILY DOMINIC Administration
Patch Removal 2 patch 07/02/25 20:00 07/03/25 20:43
Remove Lidocaine Patch REMOVE 07/30/25 19:59 2 patch
DAILY@2000 DOMINIC Administration
Polyethylene Glycol 17 grams 07/03/25 20:00 07/04/25 08:06
Polyethylene Glycol Powder 17 Grams Packet PO 07/31/25 19:59 Not Given
BID DOMINIC
Senna/Docusate Sodium 2 tablet 07/04/25 14:55
Docusate W/Senna (Maria De Jesus-Colace) Tablet PO 07/30/25 11:59
BID DOMINIC
Trazodone HCl 100 mg 07/02/25 22:00 07/03/25 22:17
Trazodone 50 Mg Tablet PO 07/30/25 21:59 100 mg
HS DOMINIC Administration
Home Medications
�Medication �Instructions �Recorded
Fentanyl 251 mcg INFUSION DAILY Pain 09/14/18
aspirin 81 mg tablet,delayed 81 mg PO DAILY Blood Clot 12/13/19
release Prevention/Tx
trazodone 50 mg tablet 100 mg PO HSPRN PRN sleep 12/13/19
atorvastatin 20 mg tablet (Lipitor) 20 mg PO DAILY High Cholesterol 07/02/25
duloxetine 60 mg capsule,delayed 60 mg PO DAILY Depression 07/02/25
release
hydromorphone 4 mg tablet 4 mg PO Q6HPRN PRN severe pains 07/02/25
lenalidomide 5 mg capsule 5 mg PO DIRECTED Cancer 07/02/25
levetiracetam 500 mg tablet 500 mg PO BID Neurological 07/02/25
(Keppra) Condition
losartan 100 mg tablet 100 mg PO DAILY Blood Pressure 07/02/25
metoprolol succinate 50 mg 50 mg PO DAILY Blood Pressure 07/02/25
tablet,extended release 24 hr
(Toprol XL)
nitrofurantoin macrocrystal 50 mg 50 mg PO DAILY penitentiary 07/02/25
capsule
potassium chloride 20 mEq 20 meq PO DAILY Electrolyte 07/02/25
tablet,extended release Repletion
methocarbamol 500 mg tablet 500 mg PO TID 07/03/25
mirabegron 50 mg tablet,extended 50 mg PO DAILY Urinary Issue 07/04/25
release 24 hr (Myrbetriq)
Vital Signs and Labs
-
Vital Signs and Labs:
Vital Signs
Temp Pulse Resp BP Pulse Ox
37.0 C 61 14 131/75 99
07/04/25 10:09 07/04/25 10:09 07/04/25 10:09 07/04/25 10:09 07/04/25 10:09
Lab Results
07/03/25 09:35
07/04/25 06:15
Sodium 136 mmol/L (135-145) 07/04/25 06:15
Potassium 3.9 mmol/L (3.5-5.1) 07/04/25 06:15
BUN 30 mg/dl (7-17) H 07/04/25 06:15
Glucose 122 mg/dl (70-99) H 07/04/25 06:15
Calcium 8.8 mg/dl (8.4-10.2) 07/04/25 06:15
Phosphorus 3.3 mg/dl (2.5-4.5) 07/03/25 09:35
[2025-07-04 15:46] VITALS: BP 167/76
[2025-07-04] MEDS: LOVENOX 40 MG SC (17:12)
[2025-07-04] MEDS: REMOVE LIDOCAINE PATCH 2 PATCH REMOVE (20:42)
[2025-07-04] MEDS: SENOKOT-S 2 TABLET PO (20:42)
[2025-07-04] MEDS: DILAUDID 1.5 MG IV (20:57)
[2025-07-04] MEDS: DESYREL 100 MG PO (22:00)
[2025-07-04] MEDS: MELATONIN 5 MG PO (22:02)
[2025-07-04] MEDS: MACRODANTIN 50 MG PO (22:02)
[2025-07-04] MEDS: NON-FORMULARY ITEM 5 MG PO (22:03)
[2025-07-04 22:57] VITALS: BP 135/63
[2025-07-05] MEDS: TYLENOL PO ×2 (00:12→03:58)
[2025-07-05] MEDS: TORADOL IV (00:12)
[2025-07-05] MEDS: TORADOL 15 MG IV ×2 (06:15→12:00)
[2025-07-05] MEDS: DECADRON 4 MG IV (06:15)
[2025-07-05 07:11] VITALS: BP 135/115
[2025-07-05 07:20] LABS: Hematocrit 34.7 % (37.0-47.0); Hemoglobin 11.4 g/dL (12.0-16.0); Mean Corp Hgb Conc. 32.9 g/dL (33.0-37.0); Mean Corpuscular Volume 92.3 fL (81.0-99.0); Platelet Count 144 10^3/uL (130-400); Red Cell Dist. Width 14.1 % (11.5-14.5)
--- NOTE | 2025-07-05 08:02 | W.PN.HOSP.TC ---
Today's Communication/Plan
-
Pain control
scheduled Toradol switched to prn mild pain
IV decadron tapered to PO
PT/OT
pending MRI
Assessment / Plan
Assessment / Plan
Physical Exam
General: no acute distress, appears relatively comfortable at this time
HEENT: NormoCephalic, Moist mucous membranes, Atraumatic, PERRLA and [place] Conjunctivae
Respiratory: Clear
Cardiac: S1/S2 and Regular Rhythm; No Murmur or Rub
GI: Soft, Non Tender, Non Distended and Normal Bowel Sounds; No Organomegaly
Musculoskeletal: No Clubbing, No Cyanosis and No Edema, lower paraspinal tenderness
Skin: No Rash
Neuro: AO x 3 conversant largely coherent, mentation seems slow at times
Psych: calm
IMPRESSION:
74-year-old female with past medical history who back pain with failed back surgery status post [employer] pain pump, status post spinal stimulator, chronic pain requiring breakthrough opioid medications will presents with exacerbation of chronic
back pain likely in the setting of 4 recent fall and plane flight from [place]. Days associated with weakness in bilateral lower extremities as well as some urinary symptoms. Most likely weakness or secondary to uncontrolled pain but cannot
rule out myelopathy entirely. No recent lumbosacral spine imaging with MRI in our system. Patient likely has a high opioid tolerance and will need aggressive pain control.
PLAN:
Back pain -exhibition of back pain secondary to trauma and recent flight.
� Admit to MedSurg
� Continue patient ongoing pump
� Tylenol Q4HWA
� Toradol prn switched to schedule Q6, since switched back to prn w/ clinical improvement
- Protonix gi ppx
� Dilaudid 1 mg increased to 1.5 mg every 3 hours for severe pain
- IV Decadron 4 mg Q8H tapered to home PO 4 mg ThFrSa as is home regimen noted below
� Urinalysis not suggestive of UTI
� MRI lumbar spine pending, ativan prn for MRI
� PT/OT consultation appreciated Acute Rehab. Physiatry eval requested
- Lidocaine patches, Ice packs prn
Significant Precipitous Cognitive decline
Suspect Metabolic encephalopathy vs Delirium d/t pain poor sleep
Hx subarachnoid hemorrhage following fall last month, treated in [place]
-CT Head appreciated no acute abn's
-Brain MRI pending, ativan prn for mri
-Neuro eval appreciated
-pain control
-cont home trazodone 100 mg HS
Multiple myeloma�
� Continue patient's Revlimid 5 mg at bedtime for the next 21 days
� While on Revlimid pt is on dexamethasone 4 mg on Wednesday (substituted for IV Decadron as above)
Hypertension
� Continue losartan and metoprolol
Constipation
-bowel regimen
- Abd X-ray appreciated limited study, no obstruction
- Senokot-S increased to 2 tabs BID, refuses Miralax or Enema
DVT prophylaxis�Lovenox subcu
CODE STATUS�full code
Discussed with patient and patient's daughter RN Natalie
I spent a total of 42 minutes with the patient or on the floor. More than 50% of this time involved counseling and coordination of care.
Anticipated Discharge: 24 - 48 hours
Subjective/Interval History
-
Date of Service: July 05, 2025
Mental status and pain control significantly improved. Reports return urinary frequency, denies dysuria, constipation persists.
Objective Data
-
Labs:
Laboratory Results
07/05/25
06:53
WBC 3.8 L
Hgb 11.4 L
Hct 34.7 L
Plt Count 144
Sodium Pending
Potassium Pending
Chloride Pending
Carbon Dioxide Pending
BUN Pending
Creatinine Pending
Glucose Pending
Calcium Pending
Total Bilirubin Pending
AST Pending
ALT Pending
Alkaline Phosphatase Pending
Vital Signs:
Vital Signs
Temp Pulse Resp BP Pulse Ox
98.4 F 49 14 135/115 99
07/05/25 07:11 07/05/25 07:11 07/05/25 07:11 07/05/25 07:11 07/05/25 07:11
I&O
07/04/25 07/05/25 07/06/25
06:59 06:59 06:59
Intake Total 600 / 600 1440 / 1440
Balance 600 / 600 1440 / 1440
[2025-07-05 08:21] LABS: ALT (SGPT) 20 U/L (0-35); AST (SGOT) 22 U/L (14-36); Albumin 3.5 g/dl (3.5-5.0); Alkaline Phosphatase 33 U/L (38-126); Blood Urea Nitrogen 33 mg/dl (7-17); Calcium 8.4 mg/dl (8.4-10.2); Carbon Dioxide 31 mmol/L (22-30); Chloride 106 mmol/L (98-107); Estimated Creatinine Clearance 55 ml/min; Glucose 83 mg/dl (70-99); Potassium 3.6 mmol/L (3.5-5.1); Sodium 138 mmol/L (135-145); Total Protein 5.9 g/dl (6.3-8.2); eGFR > 60.00
[2025-07-05] MEDS: ASPIR LOW (ENTERIC COATED) 81 MG PO (08:35)
[2025-07-05] MEDS: KEPPRA 500 MG PO ×2 (08:35→20:14)
[2025-07-05] MEDS: PROTONIX 40 MG PO (08:35)
[2025-07-05] MEDS: CYMBALTA DELAYED RELEASE 60 MG PO (08:35)
[2025-07-05] MEDS: LIPITOR 20 MG PO (08:37)
[2025-07-05] MEDS: TOPROL XL PO (08:37)
[2025-07-05] MEDS: COZAAR 100 MG PO (08:37)
[2025-07-05] MEDS: TYLENOL 650 MG PO ×4 (08:37→20:16)
[2025-07-05] MEDS: LIDOCAINE 4% PATCH 2 PATCH TOPICAL (08:37)
[2025-07-05] MEDS: MIRALAX PO (08:38)
[2025-07-05] MEDS: SENOKOT-S PO (08:39)
--- NOTE | 2025-07-05 08:45 | CON.MD ---
Documented by User: Yesenia Sterling PA-C 07/05/25 17:56
Consultation - Medical
-
Referring Provider:�Gt Garalnd
Chief Complaint:�ambulatory dysfunction
�
History of Present Illness:�The patient is a 74 years old female with a past medical history of multiple myeloma, history of chronic back pain status post back surgery, status post spinal stimulator placement, who presented to the ER with
intractable back pain and difficulty in ambulation. The patient has returned from a trip to [place] recently, and says that she had some difficulty with ambulation due to leg weakness however she very clearly says that her leg weakness is not
worse as compared to her previous leg weakness, but the back pain has become worse which is making her ambulation more difficult. MRI of the brain and lumbar spine are pending.
Patient reported spinal cord stimulator was implanted then explanted. She had a fall in [place] and hit her head on cement. Denies any headaches, visual changes. Can be forgetful at times. Reports last bowel movement to have been prior to
admission. Sees [facility] pain management?. Questioned patient regarding her IT reservoir refill date and any scheduled outpatient follow-up. She initially said no then upon further questioning if she was given a print out by her pain specialist
with a low reservoir date, she said she has an appointment upcoming soon in June for refill.
�
Past Medical History:�multiple myeloma, history of chronic back pain status post back surgery, status post spinal stimulator placement,
Procedure History:�low back surgery, spinal cord stimulator, Intrathecal pump placement
Family History:�not pertinent
�
Social History:�
Functional Level Premorbidly:�Independent with all activities�
Functional Level Currently:�Bed mobility-supervision, transfer-min assist, ambulation-slow speed, shuffling 40 feet- min assist
�
Tobacco:�Denies�
Alcohol:�Denies�
Drug use:�Denies�
�
Lives with:�spouse
24-hour assistance available:�
Number of floors:�1
# steps to enter:�2
# steps to second floor: none
Potential First floor set up:�yes
Driving:�No
Occupation:�retired
�
�
Allergies:�
Allergy/AdvReac Type Severity Reaction Status Date / Time
chocolate flavor Allergy Rash Verified 07/02/25 01:48
Penicillins Allergy Rash Verified 07/02/25 01:48
vancomycin Allergy red man Verified 07/02/25 01:48
syndrome
band aid adhesive Allergy Rash Uncoded 07/02/25 01:48
�
Review of Systems:�
Constitutional: (x) abNormal _fatigue
Eye: (x) Normal _
Ear/Nose/Throat: (x) Normal _
Respiratory: (x) Normal _
Cardiovascular: (x) Normal _
Gastrointestinal: (x) Normal _
Genitourinary: (x) abNormal _urinary incontinence, on chronic abx for uti while on chemo
Musculoskeletal: (x) abNormal _low back pain, legs weakness
Integumentary: (x) Normal _
Neurologic: (x) Normal _
Psychiatric: (x) Normal _
Endocrine: (x) Normal _
Hematologic/Lymphatic: (x) Normal _
Allergic/Immunologic: (x) Normal _
�
Medications:�
Active Current Visit Medication List
Category Date Time Status
Acetaminophen [Tylenol] Med 07/02/25 08:08 Active
650 mg PO Q4HWA
Aspirin Low Dose EC [Aspir Low (Enteric Coated)] Med 07/02/25 08:08 Active
81 mg PO DAILY
Atorvastatin [Lipitor] Med 07/03/25 08:00 Active
20 mg PO DAILY
Bisacodyl [Dulcolax] Med 07/02/25 08:08 Active
10 mg RECTAL [id number] PRN
Dexamethasone Sod Phosphate [Decadron] Med 07/04/25 06:00 Active
4 mg IV Q12H
Docusate W/Senna [Senokot-S] Med 07/04/25 14:55 Active
2 tablet PO BID
Duloxetine Delayed Release [Cymbalta Delayed Release] Med 07/02/25 08:08 Active
60 mg PO DAILY
Enoxaparin Sodium [Lovenox] Med 07/02/25 18:00 Active
40 mg SC QPM
Fentanyl Med 07/02/25 08:08 Active
See Dose Instructions INFUSION DAILY
Flush (0.9% Sodium Chloride) [Flush (Nss)] Med 07/04/25 15:00 Active
See Dose Instructions IV PER PROTOCOL
HYDROmorphone [Dilaudid] Med 07/02/25 23:00 Active
1.5 mg IV Q3HPRN PRN moderate severe pain moderate
severe pain
Ketorolac [Toradol] Med 07/03/25 12:00 Active
15 mg IV Q6
Levetiracetam [Keppra] Med 07/02/25 11:00 Active
500 mg PO BID
Lidocaine [Lidocaine 4% Patch] Med 07/02/25 11:30 Active
2 patch TOPICAL DAILY
Lorazepam [Ativan] Med 07/03/25 11:21 Active
0.5 mg PO ONCE PRN
Losartan [Cozaar] Med 07/02/25 08:08 Active
100 mg PO DAILY
Melatonin Med 07/02/25 22:00 Active
5 mg PO HS
Metoprolol Xl [Toprol Xl] Med 07/02/25 11:00 Active
50 mg PO DAILY
Nitrofurantoin Macrocrystal [Macrodantin] Med 07/02/25 22:00 Active
50 mg PO HS
Non-Formulary Item Med 07/04/25 16:00 Hold
See Dose Instructions PO DAILY
Ondansetron Injectable [Zofran] Med 07/02/25 08:08 Active
4 mg IV Q6HPRN PRN
Pantoprazole [Protonix] Med 07/02/25 09:00 Active
40 mg PO DAILY
Polyethylene Glycol Powder [Miralax] Med 07/03/25 20:00 Active
17 grams PO BID
Remove Patch [Remove Lidocaine Patch] Med 07/02/25 20:00 Active
2 patch REMOVE DAILY@1999
Revlimid Med 07/03/25 22:00 Active
See Dose Instructions PO HS
Trazodone [Desyrel] Med 07/02/25 22:00 Active
100 mg PO HS
�
Vitals:�
Temp Pulse Resp BP Pulse Ox
98.5 F 63 16 150/66 100
07/05/25 15:03 07/05/25 15:03 07/05/25 15:03 07/05/25 15:03 07/05/25 15:03
Height 5 ft 4 in
Actual Weight 69.428 kg
Body Mass Index (BMI) 26.3
�
Physical Exam:�
General Appearance/Observation: Well-developed, well-nourished individual in no apparent distress.�
Pain/Comfort Assessment: low back
�
Integumentary/Operative Site:�
�� Pressure Ulcer Evaluation: absent over heels.�
��
�� Other Type of Wound: absent�
��
�
Eyes: Conjunctiva/Lids: normal���� Pupils: pupils equal round and reactive to light and Accommodation�
Ears/Nose/Throat: oral mucosa moist,� throat clear.������������ Lips/Teeth/Gums: normal�
Neck: No muscle spasm or tenderness�
Cardiovascular: Heart: regular, no murmur�
Pulses: dorsalis pedis 2+ bilaterally�
Respiratory: Respiratory Effort/Chest Expansion: normal������� Auscultation: Clear to auscultation bilaterally�
Gastrointestinal: abdomen not tender, no distension, normal abdominal bowel sounds
Genitourinary: No Lacy�
Extremities:�Edema: None�Cyanosis: None�Trophic�changes: None
�
Neurology Exam:
Orientation: Alert, Oriented to self, Time, Place�
Memory: Intact for immediate medical concerns
Comprehension: Intact
Two step command: Intact
Naming: Intact
Cranial Nerves:
�� CNII:�Pupillary light reflex: Intact����Visual Field: Intact
�� CN III, IV, : Extraocular muscles: Intact�
�� CN V:�Facial Sensation�at�Forehead: Intact,�Maxilla: Intact,�Mandible: Intact
�� CN VII:�Facial movement: Symmetric
�� CN VIII:�Hearing: Normal
�� CN IX/X:�Speech & swallow: Normal,�Position of Uvula: Midline
�� CN XI:�Shoulder shrug: Symmetric
�� CN XII:�Tongue protrusion: Midline
Sensory:
�� Light touch: Intact in bilateral upper and lower extremities
��
�
Reflexes:
�� Biceps: 2+ bilaterally
�� Brachioradialis: 2+ bilaterally
�� Triceps: 2+ bilaterally
�� Patellar: 2+ bilaterally
�� Achilles: 2+ bilaterally
�� Babinski: Down going bilaterally
�� Clonus: None
�� Kendall: Negative bilaterally�
Cerebellar: Dysmetria/Ataxia: None�
Musculoskeletal:
Motor: (Manual muscle scale 0-5)�
Muscle SA EF WE EE FF FA HF KE DF EHL PF
Right� 5 5 5 5 5 5 4 4 4 5 5
Left 5 5 5 5 5 5 4+ 4+ 5 5 5
�
Tone: Normal in all extremities�
Range of Motion: Passively within normal limits in all extremities�
�
Lab Results:
Labs
WBC 4.9 10^3/uL (4.8-10.8) 07/03/25 09:35
RBC 3.92 10^6/uL (4.20-5.40) L 07/03/25 09:35
Hgb 12.5 g/dL (12.0-16.0) 07/03/25 09:35
Hct 37.0 % (37.0-47.0) 07/03/25 09:35
MCV 94.4 fL (81.0-99.0) 07/03/25 09:35
MCH 31.9 pg (27.0-31.0) H 07/03/25 09:35
MCHC 33.8 g/dL (33.0-37.0) 07/03/25 09:35
RDW 13.9 % (11.5-14.5) 07/03/25 09:35
Plt Count 164 10^3/uL (130-400) 07/03/25 09:35
MPV 9.9 fL (7.4-10.4) 07/03/25 09:35
Abs Immat Gran (auto) 0.0 10^3/uL (0-0.05) 07/02/25 02:50
Absolute Neuts (auto) 3.8 10^3/uL (1.4-6.5) 07/02/25 02:50
Absolute Lymphs (auto) 1.3 10^3/uL (1.2-3.4) 07/02/25 02:50
Absolute Monos (auto) 1.0 10^3/uL (0.1-0.6) H 07/02/25 02:50
Absolute Eos (auto) 0.0 10^3/uL (0-0.7) 07/02/25 02:50
Absolute Basos (auto) 0.0 10^3/uL (0-0.2) 07/02/25 02:50
Immature Gran % 0.3 % (0-0.5) 07/02/25 02:50
Neutrophils % 62.2 % (42.2-75.2) 07/02/25 02:50
Lymphocytes % 20.8 % (20.5-51.1) 07/02/25 02:50
Monocytes % 15.7 % (1.7-9.3) H 07/02/25 02:50
Eosinophils % 0.3 % (0-6) 07/02/25 02:50
Basophils % 0.7 % (0-2) 07/02/25 02:50
Nucleated RBC % 0 % 07/02/25 02:50
Sodium 136 mmol/L (135-145) 07/04/25 06:15
Potassium 3.9 mmol/L (3.5-5.1) 07/04/25 06:15
Chloride 106 mmol/L (98-107) 07/04/25 06:15
Carbon Dioxide 28 mmol/L (22-30) 07/04/25 06:15
BUN 30 mg/dl (7-17) H 07/04/25 06:15
Creatinine 0.8 mg/dL (0.6-1.0) 07/04/25 06:15
Estimated Creat Clear 55 ml/min 07/04/25 06:15
eGFR > 60.00 07/04/25 06:15
Glucose 122 mg/dl (70-99) H 07/04/25 06:15
Calcium 8.8 mg/dl (8.4-10.2) 07/04/25 06:15
Phosphorus 3.3 mg/dl (2.5-4.5) 07/03/25 09:35
Magnesium 2.4 mg/dl (1.6-2.3) H 07/03/25 09:35
Total Bilirubin 1.5 mg/dl (0.2-1.3) H 07/04/25 06:15
AST 15 U/L (14-36) 07/04/25 06:15
ALT 20 U/L (0-35) 07/04/25 06:15
Alkaline Phosphatase 44 U/L (38-126) 07/04/25 06:15
Ammonia < 9 umol/L (9-30) L 07/03/25 09:35
Total Protein 5.5 g/dl (6.3-8.2) L 07/04/25 06:15
Albumin 3.4 g/dl (3.5-5.0) L 07/04/25 06:15
Urine Color Yellow 07/02/25 12:15
Urine Clarity Clear (Clear) 07/02/25 12:15
Urine pH 6.0 (5.0-9.0) 07/02/25 12:15
Ur Specific Mckee 1.020 (<1.030) 07/02/25 12:15
Urine Ketones Negative (Negative) 07/02/25 12:15
Ur Occult Blood Reflex 2+ (Negative) A 07/02/25 12:15
Urine Nitrite (Reflex) Negative (Negative) 07/02/25 12:15
Urine Bilirubin Negative (Negative) 07/02/25 12:15
Urine Urobilinogen Negative (Neg - 1+) 07/02/25 12:15
Leukocyte Esterase Rfl Negative (Negative) 07/02/25 12:15
Urine RBC 3-6 /HPF (0-2) A 07/02/25 12:15
Urine WBC (Reflex) 6-10 /HPF (0-5) 07/02/25 12:15
Ur Squamous Epith Cells 21-25 /LPF (Few) 07/02/25 12:15
Urine Bacteria (Reflex) Many (Negative) A 07/02/25 12:15
Urine Glucose Negative (Negative) 07/02/25 12:15
Urine Albumin (Reflex) 2+ (Neg - Trace) A 07/02/25 12:15
�
Diagnostic Results:�as per HPI�
Lumbar CT without contrast�07/02/2025
Grade 1 anterolisthesis of L3 on L4 and L4 with multilevel degenerative changes most pronounced at the L3-L4 level with resultant mild/moderate canal stenosis and mild bilateral neuroforaminal narrowing.
There is no evidence of acute compression fracture.
Intrathecal pain pump with catheter entering the spinal canal at the L3-L4 level.
Abdominal x-ray�07/02/2025
FINDINGS: Single portable frontal projection of the upper abdomen and lower chest was obtained. Patient declined supine or prone positioning for further abdominal radiographs. Visible lungs show low volumes with some minimal subsegmental atelectatic
changes. No dense airspace consolidation or effusion. There is gas within the stomach and the large bowel. No abnormally dilated bowel loops are identified. Paucity of stool within the visible colon. There is no free air. No abnormal calcifications.
No acute osseous abnormality identified.
�
Assessment:74 year old female with PMH of lumbar surgery with implant than explant of spinal cord stimulator, currently with IT pump with ambulatory dysfunction due to intractable low back pain and legs weakness.
�
Plan�
�PT/OT to increase independence with ADLs, improve balance, coordination, endurance, strength, mobility, community reintegration, decreased burden of care on others and family education.�
�
Ambulatory Dysfunction/Debility: PT, OT
Low back pain: h/o surgery, IT pump - Low reservoir date may be approaching in July 07 or ?- double check date with patient. She has an appointment date.
Multiple myeloma: Revlimid 5 mg daily x 21 days
Hx subarachnoid hemorrhage following fall last month, treated in [place]. On [facility] [facility] scan -n acute abnormality. Brain MRI pending
H/o Bilateral collar fractures-Per patient left one surgically treatment, right one healed on own
HTN: continue medications, monitor closely�
HLD: Statin�
Anemia: Likely multifactorial.� Continue to monitor.�
Psych: Monitor mood, adjust medications as needed.�
Skin: monitor for pressure sores/rashes/lesions.�
Pain: IT pump, acetaminophen or oxycodone as needed.� Lidoderm patch, Decadron 4 mg p.o. , Wednesday, Wednesday at 0800, hydromorphone 1.5 IV every 3 as needed, lorazepam 0.5 once as needed Toradol 50 mg IV Q6 as needed
Bowel/constipation: Colace and Senokot-S 2 tab twice daily, PRN bisacodyl.� MiraLAX 17 g twice daily
Bladder/overactive: Time void, PVRs, PRN straight cath.� Myrbetriq ER 50
GI Prophylaxis: Pantoprazole�
DVT Prophylaxis: mechanical and Lovenox
Pulmonary: Incentive spirometry�
Safety: Continue to reinforce assistance with all transfers.�
Code Status:� Full code
Dispo�(date/plan/equipment needs): Home with family care.� Social history reviewed.�
�
Functional and Medical Goals:�Modified Independent with ADL�s, ambulation, transfers�
�
�
Discharge Destination:�SNF
Low back pain: h/o surgery, IT pump - Low reservoir date be approaching in July 07 or ?- double check date with patient. Says that she has an appointment for pump refill.
Bowel/constipation: Colace and Senokot-S 2 tab twice daily, add PRN bisacodyl.� MiraLAX 17 g twice daily
Thank you for allowing me to care for your patient. Please contact me with any questions or concerns.

Documented by User: Lance Harrison MD 07/06/25 00:15
Consultation - Medical
-
Referring Provider:�Gt Garland
Chief Complaint:�ambulatory dysfunction
�
History of Present Illness:�The patient is a 74 years old right-handed female with a past medical history of multiple myeloma, history of chronic back pain status post back surgery, status post spinal stimulator placement, who presented to the ER
with intractable back pain and difficulty in ambulation. The patient has returned from a trip to [place] recently, and says that she had some difficulty with ambulation due to leg weakness however she very clearly says that her leg weakness is
not worse as compared to her previous leg weakness, but the back pain has become worse which is making her ambulation more difficult. MRI of the brain and lumbar spine are pending.
Patient reported spinal cord stimulator was implanted then explanted. She had a fall in [place] and hit her head on cement. Denies any headaches, visual changes. Can be forgetful at times. Reports last bowel movement to have been prior to
admission. Sees [facility] pain management?. Questioned patient regarding her IT reservoir refill date and any scheduled outpatient follow-up. She initially said no then upon further questioning if she was given a print out by her pain specialist
with a low reservoir date, she said she has an appointment upcoming soon in June for refill.
�
Past Medical History:�multiple myeloma, history of chronic back pain status post back surgery, status post spinal stimulator placement,
Procedure History:�low back surgery, spinal cord stimulator, Intrathecal pump placement
Family History:�not pertinent
�
Social History:�
Functional Level Premorbidly:�Independent with all activities�
Functional Level Currently:�Bed mobility-supervision, transfer-min assist, ambulation-slow speed, shuffling 40 feet- min assist
�
Tobacco:�Denies�
Alcohol:�Denies�
Drug use:�Denies�
�
Lives with:�spouse
24-hour assistance available:�Yes
Number of floors:�1
# steps to enter:�2
# steps to second floor: none
Potential First floor set up:�yes
Driving:�No
Occupation:�retired
�
�
Allergies:�
Allergy/AdvReac Type Severity Reaction Status Date / Time
chocolate flavor Allergy Rash Verified 07/02/25 01:48
Penicillins Allergy Rash Verified 07/02/25 01:48
vancomycin Allergy red man Verified 07/02/25 01:48
syndrome
band aid adhesive Allergy Rash Uncoded 07/02/25 01:48
�
Review of Systems:�
Constitutional: (x) abNormal _fatigue
Eye: (x) Normal _
Ear/Nose/Throat: (x) Normal _
Respiratory: (x) Normal _
Cardiovascular: (x) Normal _
Gastrointestinal: (x) Normal _
Genitourinary: (x) abNormal _urinary incontinence, on chronic abx for uti while on chemo
Musculoskeletal: (x) abNormal _low back pain, legs weakness
Integumentary: (x) Normal _
Neurologic: (x) Normal _
Psychiatric: (x) Normal _
Endocrine: (x) Normal _
Hematologic/Lymphatic: (x) Normal _
Allergic/Immunologic: (x) Normal _
�
Medications:�
Active Current Visit Medication List
Category Date Time Status
Acetaminophen [Tylenol] Med 07/02/25 08:08 Active
650 mg PO Q4HWA
Aspirin Low Dose EC [Aspir Low (Enteric Coated)] Med 07/02/25 08:08 Active
81 mg PO DAILY
Atorvastatin [Lipitor] Med 07/03/25 08:00 Active
20 mg PO DAILY
Bisacodyl [Dulcolax] Med 07/02/25 08:08 Active
10 mg RECTAL [id number] PRN
Dexamethasone Sod Phosphate [Decadron] Med 07/04/25 06:00 Active
4 mg IV Q12H
Docusate W/Senna [Senokot-S] Med 07/04/25 14:55 Active
2 tablet PO BID
Duloxetine Delayed Release [Cymbalta Delayed Release] Med 07/02/25 08:08 Active
60 mg PO DAILY
Enoxaparin Sodium [Lovenox] Med 07/02/25 18:00 Active
40 mg SC QPM
Fentanyl Med 07/02/25 08:08 Active
See Dose Instructions INFUSION DAILY
Flush (0.9% Sodium Chloride) [Flush (Nss)] Med 07/04/25 15:00 Active
See Dose Instructions IV PER PROTOCOL
HYDROmorphone [Dilaudid] Med 07/02/25 23:00 Active
1.5 mg IV Q3HPRN PRN moderate severe pain moderate
severe pain
Ketorolac [Toradol] Med 07/03/25 12:00 Active
15 mg IV Q6
Levetiracetam [Keppra] Med 07/02/25 11:00 Active
500 mg PO BID
Lidocaine [Lidocaine 4% Patch] Med 07/02/25 11:30 Active
2 patch TOPICAL DAILY
Lorazepam [Ativan] Med 07/03/25 11:21 Active
0.5 mg PO ONCE PRN
Losartan [Cozaar] Med 07/02/25 08:08 Active
100 mg PO DAILY
Melatonin Med 07/02/25 22:00 Active
5 mg PO HS
Metoprolol Xl [Toprol Xl] Med 07/02/25 11:00 Active
50 mg PO DAILY
Nitrofurantoin Macrocrystal [Macrodantin] Med 07/02/25 22:00 Active
50 mg PO HS
Non-Formulary Item Med 07/04/25 16:00 Hold
See Dose Instructions PO DAILY
Ondansetron Injectable [Zofran] Med 07/02/25 08:08 Active
4 mg IV Q6HPRN PRN
Pantoprazole [Protonix] Med 07/02/25 09:00 Active
40 mg PO DAILY
Polyethylene Glycol Powder [Miralax] Med 07/03/25 20:00 Active
17 grams PO BID
Remove Patch [Remove Lidocaine Patch] Med 07/02/25 20:00 Active
2 patch REMOVE DAILY@1999
Revlimid Med 07/03/25 22:00 Active
See Dose Instructions PO HS
Trazodone [Desyrel] Med 07/02/25 22:00 Active
100 mg PO HS
�
Vitals:�
Temp Pulse Resp BP Pulse Ox
98.5 F 63 16 150/66 100
07/05/25 15:03 07/05/25 15:03 07/05/25 15:03 07/05/25 15:03 07/05/25 15:03
Height 5 ft 4 in
Actual Weight 69.428 kg
Body Mass Index (BMI) 26.3
�
Physical Exam:�
General Appearance/Observation: Well-developed, well-nourished individual in no apparent distress.�
Pain/Comfort Assessment: low back
Integumentary/Operative Site:�
�� Pressure Ulcer Evaluation: absent over heels.�
��
Eyes: Conjunctiva/Lids: normal���� Pupils: pupils equal round and reactive to light and Accommodation�
Ears/Nose/Throat: oral mucosa moist,� throat clear.������������ Lips/Teeth/Gums: normal�
Neck: No muscle spasm or tenderness�
Cardiovascular: Heart: regular, no murmur�
Pulses: dorsalis pedis 2+ bilaterally�
Respiratory: Respiratory Effort/Chest Expansion: normal������� Auscultation: Clear to auscultation bilaterally�
Gastrointestinal: abdomen not tender, no distension, normal abdominal bowel sounds
Genitourinary: No Lacy�
Extremities:�Edema: None�Cyanosis: None�Trophic�changes: None
�
Neurology Exam:
Orientation: Alert, Oriented to self, Time, Place�
Memory: Intact for immediate medical concerns
Comprehension: Intact
Two step command: Intact
Naming: Intact
Cranial Nerves:
�� CNII:�Pupillary light reflex: Intact����Visual Field: Intact
�� CN III, IV, : Extraocular muscles: Intact�
�� CN V:�Facial Sensation�at�Forehead: Intact,�Maxilla: Intact,�Mandible: Intact
�� CN VII:�Facial movement: Symmetric
�� CN VIII:�Hearing: Normal
�� CN IX/X:�Speech & swallow: Normal,�Position of Uvula: Midline
�� CN XI:�Shoulder shrug: Symmetric
�� CN XII:�Tongue protrusion: Midline
Sensory:
�� Light touch: Intact in bilateral upper and lower extremities
��
�
Reflexes:
�� Biceps: 2+ bilaterally
�� Brachioradialis: 2+ bilaterally
�� Triceps: 2+ bilaterally
�� Patellar: 2+ bilaterally
�� Achilles: 2+ bilaterally
�� Babinski: Down going bilaterally
�� Clonus: None
�� Kendall: Negative bilaterally�
Cerebellar: Dysmetria/Ataxia: None�
Musculoskeletal: Motor: (Manual muscle scale 0-5)�
Muscle SA EF WE EE FF FA HF KE DF EHL PF
Right� 5 5 5 5 5 5 2 4 4 5 5
Left 5 5 5 5 5 5 3+ 4+ 5 5 5
�
Tone: Normal in all extremities�
Range of Motion: Passively within normal limits in all extremities�
Patient able to walk from bathroom to her room with supervision with a rolling walker. Able to she go to bed and bring her legs up on her own with increased time.
�
Lab Results:
Labs
WBC 4.9 10^3/uL (4.8-10.8) 07/03/25 09:35
RBC 3.92 10^6/uL (4.20-5.40) L 07/03/25 09:35
Hgb 12.5 g/dL (12.0-16.0) 07/03/25 09:35
Hct 37.0 % (37.0-47.0) 07/03/25 09:35
MCV 94.4 fL (81.0-99.0) 07/03/25 09:35
MCH 31.9 pg (27.0-31.0) H 07/03/25 09:35
MCHC 33.8 g/dL (33.0-37.0) 07/03/25 09:35
RDW 13.9 % (11.5-14.5) 07/03/25 09:35
Plt Count 164 10^3/uL (130-400) 07/03/25 09:35
MPV 9.9 fL (7.4-10.4) 07/03/25 09:35
Abs Immat Gran (auto) 0.0 10^3/uL (0-0.05) 07/02/25 02:50
Absolute Neuts (auto) 3.8 10^3/uL (1.4-6.5) 07/02/25 02:50
Absolute Lymphs (auto) 1.3 10^3/uL (1.2-3.4) 07/02/25 02:50
Absolute Monos (auto) 1.0 10^3/uL (0.1-0.6) H 07/02/25 02:50
Absolute Eos (auto) 0.0 10^3/uL (0-0.7) 07/02/25 02:50
Absolute Basos (auto) 0.0 10^3/uL (0-0.2) 07/02/25 02:50
Immature Gran % 0.3 % (0-0.5) 07/02/25 02:50
Neutrophils % 62.2 % (42.2-75.2) 07/02/25 02:50
Lymphocytes % 20.8 % (20.5-51.1) 07/02/25 02:50
Monocytes % 15.7 % (1.7-9.3) H 07/02/25 02:50
Eosinophils % 0.3 % (0-6) 07/02/25 02:50
Basophils % 0.7 % (0-2) 07/02/25 02:50
Nucleated RBC % 0 % 07/02/25 02:50
Sodium 136 mmol/L (135-145) 07/04/25 06:15
Potassium 3.9 mmol/L (3.5-5.1) 07/04/25 06:15
Chloride 106 mmol/L (98-107) 07/04/25 06:15
Carbon Dioxide 28 mmol/L (22-30) 07/04/25 06:15
BUN 30 mg/dl (7-17) H 07/04/25 06:15
Creatinine 0.8 mg/dL (0.6-1.0) 07/04/25 06:15
Estimated Creat Clear 55 ml/min 07/04/25 06:15
eGFR > 60.00 07/04/25 06:15
Glucose 122 mg/dl (70-99) H 07/04/25 06:15
Calcium 8.8 mg/dl (8.4-10.2) 07/04/25 06:15
Phosphorus 3.3 mg/dl (2.5-4.5) 07/03/25 09:35
Magnesium 2.4 mg/dl (1.6-2.3) H 07/03/25 09:35
Total Bilirubin 1.5 mg/dl (0.2-1.3) H 07/04/25 06:15
AST 15 U/L (14-36) 07/04/25 06:15
ALT 20 U/L (0-35) 07/04/25 06:15
Alkaline Phosphatase 44 U/L (38-126) 07/04/25 06:15
Ammonia < 9 umol/L (9-30) L 07/03/25 09:35
Total Protein 5.5 g/dl (6.3-8.2) L 07/04/25 06:15
Albumin 3.4 g/dl (3.5-5.0) L 07/04/25 06:15
Urine Color Yellow 07/02/25 12:15
Urine Clarity Clear (Clear) 07/02/25 12:15
Urine pH 6.0 (5.0-9.0) 07/02/25 12:15
Ur Specific Mckee 1.020 (<1.030) 07/02/25 12:15
Urine Ketones Negative (Negative) 07/02/25 12:15
Ur Occult Blood Reflex 2+ (Negative) A 07/02/25 12:15
Urine Nitrite (Reflex) Negative (Negative) 07/02/25 12:15
Urine Bilirubin Negative (Negative) 07/02/25 12:15
Urine Urobilinogen Negative (Neg - 1+) 07/02/25 12:15
Leukocyte Esterase Rfl Negative (Negative) 07/02/25 12:15
Urine RBC 3-6 /HPF (0-2) A 07/02/25 12:15
Urine WBC (Reflex) 6-10 /HPF (0-5) 07/02/25 12:15
Ur Squamous Epith Cells 21-25 /LPF (Few) 07/02/25 12:15
Urine Bacteria (Reflex) Many (Negative) A 07/02/25 12:15
Urine Glucose Negative (Negative) 07/02/25 12:15
Urine Albumin (Reflex) 2+ (Neg - Trace) A 07/02/25 12:15
�
Diagnostic Results:�as per HPI�
Lumbar CT without contrast�07/02/2025
Grade 1 anterolisthesis of L3 on L4 and L4 with multilevel degenerative changes most pronounced at the L3-L4 level with resultant mild/moderate canal stenosis and mild bilateral neuroforaminal narrowing.
There is no evidence of acute compression fracture.
Intrathecal pain pump with catheter entering the spinal canal at the L3-L4 level.
Abdominal x-ray�07/02/2025
FINDINGS: Single portable frontal projection of the upper abdomen and lower chest was obtained. Patient declined supine or prone positioning for further abdominal radiographs. Visible lungs show low volumes with some minimal subsegmental atelectatic
changes. No dense airspace consolidation or effusion. There is gas within the stomach and the large bowel. No abnormally dilated bowel loops are identified. Paucity of stool within the visible colon. There is no free air. No abnormal calcifications.
No acute osseous abnormality identified.
�
Assessment:
74 year old female with PMH of lumbar surgery with implant than explant of spinal cord stimulator, currently with IT pump with ambulatory dysfunction due to intractable low back pain and legs weakness.
�
Plan�
PT/OT to increase independence with ADLs, improve balance, coordination, endurance, strength, mobility, community reintegration, decreased burden of care on others and family education.�
�
Ambulatory Dysfunction/Debility: PT, OT
Low back pain: h/o surgery, IT pump - Low reservoir date may be approaching 07/13/2025, she will need an outpatient visit. She has an appointment date. May need adjustment of her medication.
-MRI of the brain and lumbar spine per neurology. Will have to have her pump turned off according to hospitalist.
Multiple myeloma: Revlimid 5 mg daily x 21 days
Hx subarachnoid hemorrhage following fall last month, treated in [place]. On [facility] scan -no acute abnormality. Brain MRI pending
H/o Bilateral collar bone fractures-Per patient left one surgically treatment, right one healed on own
HTN: continue medications, monitor closely�
HLD: Statin�
Anemia: Likely multifactorial.� Continue to monitor.�
Psych: Monitor mood, adjust medications as needed.�
Skin: monitor for pressure sores/rashes/lesions.�
Pain: IT pump, acetaminophen or oxycodone as needed.� Lidoderm patch, Decadron 4 mg p.o. , Wednesday, Wednesday at 0800, hydromorphone 1.5 IV every 3 as needed, lorazepam 0.5 once as needed Toradol 50 mg IV Q6 as needed
Bowel/constipation: Colace and Senokot-S 2 tab twice daily, PRN bisacodyl.� MiraLAX 17 g twice daily
Bladder/overactive: Time void, PVRs, PRN straight cath.� Myrbetriq ER 50 milligrams. On Macrodantin daily for UTI prevention.
GI Prophylaxis: Pantoprazole�
DVT Prophylaxis: mechanical and Lovenox
Pulmonary: Incentive spirometry�
Safety: Continue to reinforce assistance with all transfers.�
Code Status:� Full code
Dispo�(date/plan/equipment needs): Home with family care.� Social history reviewed.�
Functional and Medical Goals:�Modified Independent with ADL�s, ambulation, transfers�
Discharge Destination:�SNF
Attending Statement:
I saw and examined the patient 07/05/2025. Reviewed care plan with patient, therapy, nursing, and physician engineer first assistant. I agree with the above subjective and physical exam, and plan as documented by JULIAN Sterling with adjustments made as necessary.
Summary of recommendations:
Discharge Destination:�SNF
Low back pain: h/o surgery, IT pump has appointment for refill on 07/13/2025 per patient. Will need to make that appointment to have it filled. May need adjustment of medication
Bowel/constipation: Colace and Senokot-S 2 tab twice daily, add PRN bisacodyl.� MiraLAX 17 g twice daily
Thank you for allowing me to care for your patient. Please contact me with any questions or concerns.
Consultation
-
Date/Time Consultation Performed: 07/05/2025
Requesting Provider: Dr. Archana Phoenix
Performing Provider: [facility]/Dr. Lance Harrison
Reason for Consultation: Debility with back pain
[2025-07-05] MEDS: NON-FORMULARY ITEM 223 MCG INFUSION (09:24)
[2025-07-05 09:29] VITALS: BP 163/72
[2025-07-05 11:12] VITALS: BP 143/64
--- NOTE | 2025-07-05 11:48 | CM ---
Patient seen at bedside
PT/OT rec Acute rehab
Awaiting Physiatry eval
spoke with daughter Natalie (works here) and prefers referral to [facility]
referral placed in [facility]
Updated [facility] liaision
PLAN: Acute Rehab, pending bed availability when stable
[2025-07-05 13:21] VITALS: BMI 26.3
[2025-07-05 15:03] VITALS: BP 150/66
--- NOTE | 2025-07-05 15:47 | W.PN.NEURO.1 ---
Today's Communication / Plan
-
The patient is a 74 years old female with a past medical history of multiple myeloma, history of chronic back pain status post back surgery, status post spinal stimulator placement, who presented to the ER with intractable back pain and difficulty
in ambulation. The patient has returned from a trip to [place] recently, and says that she had some difficulty with ambulation due to leg weakness however she very clearly says that her leg weakness is not worse as compared to her previous leg
weakness, but the back pain has become worse which is making her ambulation more difficult.
Today, the patient was seen to be walking with the help of a walker. The strength is 5/5 in the bilateral upper extremities and 4/5 in the bilateral lower extremities.
MRI of the brain and lumbar spine are pending.
Subjective/Objective
Subjective Data
Date of Service: July 05, 2025
The patient is a 74 years old female with a past medical history of multiple myeloma, history of chronic back pain status post back surgery, status post spinal stimulator placement, who presented to the ER with intractable back pain and difficulty
in ambulation. The patient has returned from a trip to [place] recently, and says that she had some difficulty with ambulation due to leg weakness however she very clearly says that her leg weakness is not worse as compared to her previous leg
weakness, but the back pain has become worse which is making her ambulation more difficult.
Today, the patient was seen to be walking with the help of a walker. The strength is 5/5 in the bilateral upper extremities and 4/5 in the bilateral lower extremities.
MRI of the brain and lumbar spine are pending.
Objective Data
Vital Signs
Temp Pulse Resp BP Pulse Ox
36.9 C 63 16 150/66 100
07/05/25 15:03 07/05/25 15:03 07/05/25 15:03 07/05/25 15:03 07/05/25 15:03
Lab Results
07/05/25 06:53
07/05/25 06:53
Sodium 138 mmol/L (135-145) 07/05/25 06:53
Potassium 3.6 mmol/L (3.5-5.1) 07/05/25 06:53
BUN 33 mg/dl (7-17) H 07/05/25 06:53
Glucose 83 mg/dl (70-99) 07/05/25 06:53
Calcium 8.4 mg/dl (8.4-10.2) 07/05/25 06:53
Phosphorus 3.3 mg/dl (2.5-4.5) 07/03/25 09:35
Patient Allergies
chocolate flavor Allergy (Verified 07/02/25 01:48)
Rash
Penicillins Allergy (Verified 07/02/25 01:48)
Rash
vancomycin Allergy (Verified 07/02/25 01:48)
red man syndrome
band aid adhesive Allergy (Uncoded 07/02/25 01:48)
Rash
Vital Signs and Labs
-
Vital Signs and Labs:
Vital Signs
Temp Pulse Resp BP Pulse Ox
36.9 C 63 16 150/66 100
07/05/25 15:03 07/05/25 15:03 07/05/25 15:03 07/05/25 15:03 07/05/25 15:03
Lab Results
07/05/25 06:53
07/05/25 06:53
Sodium 138 mmol/L (135-145) 07/05/25 06:53
Potassium 3.6 mmol/L (3.5-5.1) 07/05/25 06:53
BUN 33 mg/dl (7-17) H 07/05/25 06:53
Glucose 83 mg/dl (70-99) 07/05/25 06:53
Calcium 8.4 mg/dl (8.4-10.2) 07/05/25 06:53
Phosphorus 3.3 mg/dl (2.5-4.5) 07/03/25 09:35
Medications
-
Active Medications
Generic Name Dose Route Start Last Admin
Trade Name Freq PRN Reason Stop Dose Admin
Acetaminophen 650 mg 07/02/25 08:08 07/05/25 12:00
Acetaminophen 325 Mg Tablet PO 07/30/25 08:07 650 mg
Q4HWA DOMINIC Administration
Aspirin 81 mg 07/02/25 08:08 07/05/25 08:35
Aspirin 81 Mg (Enteric Coated) Tablet PO 07/30/25 08:07 81 mg
DAILY DOMINIC Administration
Atorvastatin Calcium 20 mg 07/03/25 08:00 07/05/25 08:37
Atorvastatin (Lipitor) 20 Mg Tablet PO 07/31/25 07:59 20 mg
DAILY DOMINIC Administration
Bisacodyl 10 mg 07/02/25 08:08
Bisacodyl 10 Mg Rectal Suppository RECTAL 07/30/25 08:07
[id number] PRN
constipation
Dexamethasone 4 mg 07/06/25 08:00
Dexamethasone 4 Mg Tablet PO 08/03/25 07:59
ThFrSa@0800 DOMINIC
Duloxetine HCl 60 mg 07/02/25 08:08 07/05/25 08:35
Duloxetine Delayed Release 60 Mg Capsule PO 07/30/25 08:07 60 mg
DAILY DOMINIC Administration
Enoxaparin Sodium 40 mg 07/02/25 18:00 07/04/25 17:12
Enoxaparin Sodium 40 Mg/0.4 Ml Syringe SC 07/30/25 17:59 40 mg
QPM DOMINIC Administration
Hydromorphone HCl 1.5 mg 07/02/25 23:00 07/04/25 20:57
Hydromorphone 0.5 Mg/0.5 Ml Syringe IV 07/16/25 22:59 1.5 mg
Q3HPRN PRN Administration
moderate severe pain
Ketorolac Tromethamine 15 mg 07/03/25 12:00 07/05/25 12:00
Ketorolac 15 Mg/Ml Injection IV 07/08/25 11:59 15 mg
Q6 DOMINIC Administration
Levetiracetam 500 mg 07/02/25 11:00 07/05/25 08:35
Levetiracetam 500 Mg Regular Release Tablet PO 07/30/25 10:59 500 mg
BID DOMINIC Administration
Lidocaine 2 patch 07/02/25 11:30 07/05/25 08:37
Lidocaine 4% Topical Patch TOPICAL 07/30/25 11:29 2 patch
DAILY DOMINIC Administration
Protocol
Lorazepam 0.5 mg 07/03/25 11:21
Lorazepam 0.5 Mg Tablet PO 07/31/25 11:20
ONCE PRN
FOR MRI
Losartan Potassium 100 mg 07/02/25 08:08 07/05/25 08:37
Losartan 100 Mg Tablet PO 07/30/25 08:07 100 mg
DAILY DOMINIC Administration
Melatonin 5 mg 07/02/25 22:00 07/04/25 22:02
Melatonin 5 Mg Tablet PO 07/30/25 21:59 5 mg
HS DOMINIC Administration
Metoprolol Succinate 50 mg 07/02/25 11:00 07/05/25 08:37
Metoprolol 50 Mg Extended Release Tablet PO 07/30/25 10:59 Not Given
DAILY DOMINIC
Nitrofurantoin Macrocrystals 50 mg 07/02/25 22:00 07/04/25 22:02
Nitrofurantoin Macrocrystal 50 Mg Capsule PO 50 mg
HS DOMINIC Administration
Fentanyl Pump.Resvr 0 mcg 07/02/25 08:08 07/05/25 09:24
223mcg/Day INFUSION 07/30/25 08:07 223 mcg
DAILY DOMINIC Administration
Lenalidomide ( 0 mg 07/03/25 22:00 07/04/25 22:03
Revlimid) 5 Mg Po PO 07/31/25 21:59 5 mg
Daily X 21 Days HS DOMINIC Administration
Myrbetriq Er 50mg 0 unit 07/04/25 16:00
Take 1 Tablet Once PO 08/01/25 15:59
Daily DAILY DOMINIC
On Hold: 07/04/25 16:00
Ondansetron HCl 4 mg 07/02/25 08:08
Ondansetron 4 Mg/2 Ml Vial IV 07/30/25 08:07
Q6HPRN PRN
nausea and vomiting
Pantoprazole Sodium 40 mg 07/02/25 09:00 07/05/25 08:35
Pantoprazole 40 Mg Delayed Release Tablet PO 07/30/25 08:59 40 mg
DAILY DOMINIC Administration
Patch Removal 2 patch 07/02/25 20:00 07/04/25 20:42
Remove Lidocaine Patch REMOVE 07/30/25 19:59 2 patch
DAILY@2000 DOMINIC Administration
Polyethylene Glycol 17 grams 07/03/25 20:00 07/05/25 08:38
Polyethylene Glycol Powder 17 Grams Packet PO 07/31/25 19:59 Not Given
BID DOMINIC
Senna/Docusate Sodium 2 tablet 07/04/25 14:55 07/05/25 08:39
Docusate W/Senna (Maria De Jesus-Colace) Tablet PO 07/30/25 11:59 Not Given
BID DOMINIC
Sodium Chloride 0 flush 07/04/25 15:00
Sodium Chloride 0.9% (Flush) Syringe IV 08/01/25 14:59
PER PROTOCOL DOMINIC
Trazodone HCl 100 mg 07/02/25 22:00 07/04/25 22:00
Trazodone 50 Mg Tablet PO 07/30/25 21:59 100 mg
HS DOMINIC Administration
Home Medications
�Medication �Instructions �Recorded
Fentanyl 251 mcg INFUSION DAILY Pain 09/14/18
aspirin 81 mg tablet,delayed 81 mg PO DAILY Blood Clot 12/13/19
release Prevention/Tx
trazodone 50 mg tablet 100 mg PO HSPRN PRN sleep 12/13/19
atorvastatin 20 mg tablet (Lipitor) 20 mg PO DAILY High Cholesterol 07/02/25
duloxetine 60 mg capsule,delayed 60 mg PO DAILY Depression 07/02/25
release
hydromorphone 4 mg tablet 4 mg PO Q6HPRN PRN severe pains 07/02/25
lenalidomide 5 mg capsule 5 mg PO DIRECTED Cancer 07/02/25
levetiracetam 500 mg tablet 500 mg PO BID Neurological 07/02/25
(Keppra) Condition
losartan 100 mg tablet 100 mg PO DAILY Blood Pressure 07/02/25
metoprolol succinate 50 mg 50 mg PO DAILY Blood Pressure 07/02/25
tablet,extended release 24 hr
(Toprol XL)
nitrofurantoin macrocrystal 50 mg 50 mg PO DAILY snf 07/02/25
capsule
potassium chloride 20 mEq 20 meq PO DAILY Electrolyte 07/02/25
tablet,extended release Repletion
methocarbamol 500 mg tablet 500 mg PO TID 07/03/25
mirabegron 50 mg tablet,extended 50 mg PO DAILY Urinary Issue 07/04/25
release 24 hr (Myrbetriq)
[2025-07-05 16:39] VITALS: BP 168/75
[2025-07-05] MEDS: LOVENOX 40 MG SC (17:01)
[2025-07-05] MEDS: DILAUDID 1.5 MG IV (18:07)
[2025-07-05] MEDS: MIRALAX 17 GRAMS PO (20:14)
[2025-07-05] MEDS: SENOKOT-S 2 TABLET PO (20:16)
[2025-07-05] MEDS: REMOVE LIDOCAINE PATCH REMOVE (20:16)
[2025-07-05] MEDS: DESYREL 100 MG PO (21:35)
[2025-07-05] MEDS: MELATONIN 5 MG PO (21:35)
[2025-07-05] MEDS: MACRODANTIN 50 MG PO (21:35)
[2025-07-05] MEDS: NON-FORMULARY ITEM 5 MG PO (21:35)
[2025-07-05 23:00] VITALS: BP 129/54
[2025-07-06] MEDS: TYLENOL PO ×2 (01:23→05:00)
[2025-07-06 07:32] VITALS: BP 156/70
--- NOTE | 2025-07-06 07:57 | W.PN.HOSP.TC ---
Today's Communication/Plan
-
possible worsening delirium d/t ativan given for MRI, avoid/minimize use benzo as possible
cont pain control
Bowel Regimen
PT/OT
Assessment / Plan
Assessment / Plan
Physical Exam
General: no acute distress, appears relatively comfortable at this time
HEENT: NormoCephalic, Moist mucous membranes, Atraumatic, PERRLA and [place] Conjunctivae
Respiratory: Clear
Cardiac: S1/S2 and Regular Rhythm; No Murmur or Rub
GI: Soft, Non Tender, Non Distended and Normal Bowel Sounds; No Organomegaly
Musculoskeletal: No Clubbing, No Cyanosis and No Edema, lower paraspinal tenderness
Skin: No Rash
Neuro/Psych: AO x 3 conversant largely coherent, mentation seems slow at times, patient more confused later in day possible adverse side effect ativan given for MRI,
MRI Brain
1. Mild amount of subarachnoid hemorrhage in the sulci overlying the anterior convexity of the right frontal lobe and mild gyriform signal abnormality in the cortical marie matter of the anterior right frontal lobe which is new from 01/16/2020.
Considering the absence of any acute intracranial hemorrhage seen on the recent CT examination performed 07/02/2025, this is most consistent with subacute petechial hemorrhage (brain contusion) in the cortical marie matter and subacute to chronic
overlying subarachnoid hemorrhage.
2. Mild to moderate diffuse distention of the ventricular system. Diagnostic possibilities are (1) normal pressure communicating hydrocephalus or (2) ex vacuo ventricular dilatation.
3. Moderate white matter leukoaraiosis in the frontal lobes.
4. Mild diffuse cerebral and cerebellar volume loss.
5. Moderate discogenic degenerative disease at C5/C6 with a disc-osteophyte complex causing mild spinal cord compression and central canal stenosis.
MRI Lumbar Spine
1. Small central disc herniation at T10/T11 causing mild spinal cord compression and central canal stenosis.
2. Pain pump catheter in the upper lumbar and thoracic spinal canal.
3. 3 mm grade 1 anterolisthesis of L3 on L4 secondary to severe bilateral facet joint arthrosis. Mild central canal stenosis at L3/L4 which appears similar to 05/19/2024.
4. Severe chronic discogenic degenerative disease at L4/L5 and L5/S1 with partial osseous fusion across the intervertebral discs and L4/L5 facet joints.
5. Mild to moderate bilateral facet joint arthrosis at L5/S1.
6. Mild edema or denervation atrophy in the right posterior inferior paraspinal muscles which appears unchanged.
IMPRESSION:
74-year-old female with past medical history who back pain with failed back surgery status post [employer] pain pump, status post spinal stimulator, chronic pain requiring breakthrough opioid medications will presents with exacerbation of chronic
back pain likely in the setting of 4 recent fall and plane flight from [place]. Days associated with weakness in bilateral lower extremities as well as some urinary symptoms. Most likely weakness or secondary to uncontrolled pain but cannot
rule out myelopathy entirely. No recent lumbosacral spine imaging with MRI in our system. Patient likely has a high opioid tolerance and will need aggressive pain control.
PLAN:
Back pain -exhibition of back pain secondary to trauma and recent flight.
� Admit to MedSurg
� Continue patient ongoing pump
� Tylenol Q4HWA
� Toradol prn switched to schedule Q6, since switched back to prn w/ clinical improvement
- Protonix gi ppx
� IV Dilaudid 1.5 mg every 3 hours for severe pain
- IV Decadron 4 mg Q8H tapered to home PO 4 mg ThFrSa as is home regimen noted below
� Urinalysis not suggestive of UTI
� MRI lumbar spine appreciated as above
� PT/OT consultation appreciated Acute Rehab. Physiatry eval however recommending SNF rehab
- Lidocaine patches, Ice packs prn
Significant Precipitous Cognitive decline
Suspect Metabolic encephalopathy vs Delirium d/t pain poor sleep
Hx subarachnoid hemorrhage following fall last month, treated in [place]
-CT Head appreciated no acute abn's
-Brain MRI appreciated as above, noted possible NPH vs ex vacuo dilatation- more likely dilatation 2/2 TBI vs underlying dementia
-Neuro eval appreciated
-pain control
-cont home trazodone 100 mg HS
-possible worsening delirium d/t ativan given for MRI, avoid/minimize use benzo as possible
Multiple myeloma�
� Continue patient's Revlimid 5 mg at bedtime for the next 21 days
� While on Revlimid pt is on dexamethasone 4 mg on Wednesday (substituted for IV Decadron as above)
Hypertension
� Continue losartan and metoprolol
Constipation
-bowel regimen
- Abd X-ray appreciated limited study, no obstruction
- Senokot-S increased to 2 tabs BID, refuses Miralax or Enema
DVT prophylaxis�Lovenox subcu
CODE STATUS�full code
Discussed with patient and patient's daughter Rowena
I spent a total of 42 minutes with the patient or on the floor. More than 50% of this time involved counseling and coordination of care.
Anticipated Discharge: > 48 hours
Subjective/Interval History
-
Date of Service: July 06, 2025
Seen and examined at bedside early in day, no acute distress sitting up comfortably in chair, overall reporting feeling well. Pain significantly improved. Patient however significantly more confused later in the day possible owning vs side
effect ativan given for MRI
Objective Data
-
Vital Signs:
Vital Signs
Temp Pulse Resp BP Pulse Ox
97.6 F 56 16 156/70 97
07/06/25 07:32 07/06/25 07:32 07/06/25 07:32 07/06/25 07:32 07/06/25 07:32
I&O
07/05/25 07/06/25 07/07/25
06:59 06:59 06:59
Intake Total 1440 / 1440 1080 / 1080
Balance 1440 / 1440 1080 / 1080
[2025-07-06] MEDS: TOPROL XL 50 MG PO (08:51)
[2025-07-06] MEDS: TYLENOL 650 MG PO ×4 (08:51→22:05)
[2025-07-06] MEDS: MIRALAX 17 GRAMS PO ×2 (08:51→22:04)
[2025-07-06] MEDS: LIDOCAINE 4% PATCH 2 PATCH TOPICAL (08:51)
[2025-07-06] MEDS: ASPIR LOW (ENTERIC COATED) 81 MG PO (08:52)
[2025-07-06] MEDS: PROTONIX 40 MG PO (08:52)
[2025-07-06] MEDS: KEPPRA 500 MG PO ×2 (08:52→22:04)
[2025-07-06] MEDS: LIPITOR 20 MG PO (08:52)
[2025-07-06] MEDS: COZAAR 100 MG PO (08:52)
[2025-07-06] MEDS: CYMBALTA DELAYED RELEASE 60 MG PO (08:52)
[2025-07-06] MEDS: SENOKOT-S 2 TABLET PO ×2 (08:53→22:05)
[2025-07-06] MEDS: NON-FORMULARY ITEM 1 UNIT PO (08:53)
[2025-07-06] MEDS: NON-FORMULARY ITEM 223 MCG INFUSION (08:54)
[2025-07-06] MEDS: DECADRON 4 MG PO (08:56)
--- NOTE | 2025-07-06 10:17 | CM ---
Addendum entered by Patricia Tracey 07/06/25 14:56:
CM called to Chelle; and she indicated that she had spoken with physician and referrals can be made to; [facility] [place]. [facility]. CM will continue to follow for discharge planning
needs.
Plan; SNF when available bed identified
Original Note:
Patient seen at bedside in [facility]. Patient states that she would like CM to call daughter Chelle and CM spoke with daughter at [phone]. Update provided that PM&R recommendation is for SNF. At daughter request CM sent TT to [facility]
regarding recommendation and talking to daughter. CM will follow up with patient daughter after she talks with PM&R. Per [facility] safety representative they do not plan to accept due to recommendation by PM&R. CM will continue to follow for discharge planning
needs.
Plan; Acute rehab vs SNF
[2025-07-06] MEDS: ATIVAN 0.5 MG PO (10:51)
[2025-07-06] MEDS: DILAUDID 1.5 MG IV ×4 (10:54→21:34)
--- NOTE | 2025-07-06 11:38 | CM ---
Patient seen at bedside on . Patient seen by PM&R and they recommend SNF. CM called to patient daughter Chelle and she requested to talk to PM&R liaison. CM sent tt to [facility] with request. CM will continue to follow for discharge
planning needs.
Plan; SNF vs Acute Rehab
[2025-07-06] MEDS: FLUSH (NSS) 2 FLUSH IV ×2 (13:32→15:42)
[2025-07-06] MEDS: TORADOL 15 MG IV ×2 (13:32→18:33)
[2025-07-06 15:31] VITALS: BP 135/59
--- NOTE | 2025-07-06 16:56 | W.PN.NEURO.1 ---
Today's Communication / Plan
-
Recommend Neurosurgical input for small central disc herniation at T10/T11 causing mild spinal cord compression and central canal stenosis.
Today, I saw and examined the patient. The neurologic examination is unchanged since yesterday. I had a detailed discussion with the patient and her daughter regarding the assessment and the management plan. I told them about the results of the
MRI.
Will sign off. Please call if you have any question.
Subjective/Objective
Subjective Data
Date of Service: July 06, 2025
The patient is a 74 years old female with a past medical history of multiple myeloma, history of chronic back pain status post back surgery, status post spinal stimulator placement, who presented to the ER with intractable back pain and difficulty
in ambulation. The patient has returned from a trip to [place] recently, and says that she had some difficulty with ambulation due to leg weakness however she very clearly says that her leg weakness is not worse as compared to her previous leg
weakness, but the back pain has become worse which is making her ambulation more difficult.
MRI Lumbar spine:
Small central disc herniation at T10/T11 causing mild spinal cord compression and central canal stenosis.
3 mm grade 1 anterolisthesis of L3 on L4 secondary to severe bilateral facet joint arthrosis. Mild central canal stenosis at L3/L4 which appears similar to 05/19/2024.
Severe chronic discogenic degenerative disease at L4/L5 and L5/S1 with partial osseous fusion across the intervertebral discs and L4/L5 facet joints.
5. Mild to moderate bilateral facet joint arthrosis at L5/S1.
6. Mild edema or denervation atrophy in the right posterior inferior paraspinal muscles which appears unchanged.
MRI Brain:
Mild amount of subarachnoid hemorrhage in the sulci overlying the anterior convexity of the right frontal lobe and mild gyriform signal abnormality in the cortical marie matter of the anterior right frontal lobe which is new from 01/16/2020.
Considering the absence of any acute intracranial hemorrhage seen on the recent CT examination performed 07/02/2025, this is most consistent with subacute petechial hemorrhage (brain contusion) in the cortical marie matter and subacute to chronic
overlying subarachnoid hemorrhage.
PLAN:
Recommend Neurosurgical input for small central disc herniation at T10/T11 causing mild spinal cord compression and central canal stenosis.
Today, I saw and examined the patient. The neurologic examination is unchanged since yesterday. I had a detailed discussion with the patient and her daughter regarding the assessment and the management plan. I told them about the results of the
MRI.
Will sign off. Please call if you have any question.
Objective Data
Vital Signs
Temp Pulse Resp BP Pulse Ox
36.9 C 67 17 135/59 96
07/06/25 15:31 07/06/25 15:31 07/06/25 15:31 07/06/25 15:31 07/06/25 15:31
Lab Results
07/05/25 06:53
07/05/25 06:53
Sodium 138 mmol/L (135-145) 07/05/25 06:53
Potassium 3.6 mmol/L (3.5-5.1) 07/05/25 06:53
BUN 33 mg/dl (7-17) H 07/05/25 06:53
Glucose 83 mg/dl (70-99) 07/05/25 06:53
Calcium 8.4 mg/dl (8.4-10.2) 07/05/25 06:53
Phosphorus 3.3 mg/dl (2.5-4.5) 07/03/25 09:35
Patient Allergies
chocolate flavor Allergy (Verified 07/02/25 01:48)
Rash
Penicillins Allergy (Verified 07/02/25 01:48)
Rash
vancomycin Allergy (Verified 07/02/25 01:48)
red man syndrome
band aid adhesive Allergy (Uncoded 07/02/25 01:48)
Rash
Medications
-
Active Medications
Generic Name Dose Route Start Last Admin
Trade Name Freq PRN Reason Stop Dose Admin
Acetaminophen 650 mg 07/02/25 08:08 07/06/25 15:40
Acetaminophen 325 Mg Tablet PO 07/30/25 08:07 650 mg
Q4HWA DOMINIC Administration
Aspirin 81 mg 07/02/25 08:08 07/06/25 08:52
Aspirin 81 Mg (Enteric Coated) Tablet PO 07/30/25 08:07 81 mg
DAILY DOMINIC Administration
Atorvastatin Calcium 20 mg 07/03/25 08:00 07/06/25 08:52
Atorvastatin (Lipitor) 20 Mg Tablet PO 07/31/25 07:59 20 mg
DAILY DOMINIC Administration
Bisacodyl 10 mg 07/02/25 08:08
Bisacodyl 10 Mg Rectal Suppository RECTAL 07/30/25 08:07
[id number] PRN
constipation
Dexamethasone 4 mg 07/06/25 08:00 07/06/25 08:56
Dexamethasone 4 Mg Tablet PO 08/03/25 07:59 4 mg
ThFrSa@0800 DOMINIC Administration
Duloxetine HCl 60 mg 07/02/25 08:08 07/06/25 08:52
Duloxetine Delayed Release 60 Mg Capsule PO 07/30/25 08:07 60 mg
DAILY DOMINIC Administration
Enoxaparin Sodium 40 mg 07/02/25 18:00 07/06/25 17:37
Enoxaparin Sodium 40 Mg/0.4 Ml Syringe SC 07/30/25 17:59 40 mg
QPM DOMINIC Administration
Hydromorphone HCl 1.5 mg 07/06/25 20:30
Hydromorphone 0.5 Mg/0.5 Ml Syringe IV 07/20/25 20:29
Q3HPRN PRN
moderate severe pain
Ketorolac Tromethamine 15 mg 07/05/25 18:00 07/06/25 18:33
Ketorolac 15 Mg/Ml Injection IV 07/08/25 12:57 15 mg
Q6HPRN PRN Administration
mild pain
Levetiracetam 500 mg 07/02/25 11:00 07/06/25 08:52
Levetiracetam 500 Mg Regular Release Tablet PO 07/30/25 10:59 500 mg
BID DOMINIC Administration
Lidocaine 2 patch 07/02/25 11:30 07/06/25 08:51
Lidocaine 4% Topical Patch TOPICAL 07/30/25 11:29 2 patch
DAILY DOMINIC Administration
Protocol
Lorazepam 0.5 mg 07/03/25 11:21 07/06/25 10:51
Lorazepam 0.5 Mg Tablet PO 07/31/25 11:20 0.5 mg
ONCE PRN Administration
FOR MRI
Losartan Potassium 100 mg 07/02/25 08:08 07/06/25 08:52
Losartan 100 Mg Tablet PO 07/30/25 08:07 100 mg
DAILY DOMINIC Administration
Melatonin 5 mg 07/02/25 22:00 07/05/25 21:35
Melatonin 5 Mg Tablet PO 07/30/25 21:59 5 mg
HS DOMINIC Administration
Metoprolol Succinate 50 mg 07/02/25 11:00 07/06/25 08:51
Metoprolol 50 Mg Extended Release Tablet PO 07/30/25 10:59 50 mg
DAILY DOMINIC Administration
Nitrofurantoin Macrocrystals 50 mg 07/02/25 22:00 07/05/25 21:35
Nitrofurantoin Macrocrystal 50 Mg Capsule PO 50 mg
HS DOMINIC Administration
Fentanyl Pump.Resvr 0 mcg 07/02/25 08:08 07/06/25 08:54
223mcg/Day INFUSION 07/30/25 08:07 223 mcg
DAILY DOMINIC Administration
Lenalidomide ( 0 mg 07/03/25 22:00 07/05/25 21:35
Revlimid) 5 Mg Po PO 07/31/25 21:59 5 mg
Daily X 21 Days HS DOMINIC Administration
Myrbetriq Er 50mg 0 unit 07/04/25 16:00 07/06/25 08:53
Take 1 Tablet Once PO 08/01/25 15:59 1 unit
Daily DAILY DOMINIC Administration
Ondansetron HCl 4 mg 07/02/25 08:08
Ondansetron 4 Mg/2 Ml Vial IV 07/30/25 08:07
Q6HPRN PRN
nausea and vomiting
Pantoprazole Sodium 40 mg 07/02/25 09:00 07/06/25 08:52
Pantoprazole 40 Mg Delayed Release Tablet PO 07/30/25 08:59 40 mg
DAILY DOMINIC Administration
Patch Removal 2 patch 07/02/25 20:00 07/05/25 20:16
Remove Lidocaine Patch REMOVE 07/30/25 19:59 Not Given
DAILY@2000 DOMINIC
Polyethylene Glycol 17 grams 07/03/25 20:00 07/06/25 08:51
Polyethylene Glycol Powder 17 Grams Packet PO 07/31/25 19:59 17 grams
BID DOMINIC Administration
Senna/Docusate Sodium 2 tablet 07/04/25 14:55 07/06/25 08:53
Docusate W/Senna (Maria De Jesus-Colace) Tablet PO 07/30/25 11:59 2 tablet
BID DOMINIC Administration
Sodium Chloride 0 flush 07/04/25 15:00 07/06/25 15:42
Sodium Chloride 0.9% (Flush) Syringe IV 08/01/25 14:59 2 flush
PER PROTOCOL DOMINIC Administration
Trazodone HCl 50 mg 07/07/25 22:00
Trazodone 50 Mg Tablet PO 08/04/25 21:59
HS DOMINIC
Home Medications
�Medication �Instructions �Recorded
Fentanyl 251 mcg INFUSION DAILY Pain 09/14/18
aspirin 81 mg tablet,delayed 81 mg PO DAILY Blood Clot 12/13/19
release Prevention/Tx
trazodone 50 mg tablet 100 mg PO HSPRN PRN sleep 12/13/19
atorvastatin 20 mg tablet (Lipitor) 20 mg PO DAILY High Cholesterol 07/02/25
duloxetine 60 mg capsule,delayed 60 mg PO DAILY Depression 07/02/25
release
hydromorphone 4 mg tablet 4 mg PO Q6HPRN PRN severe pains 07/02/25
lenalidomide 5 mg capsule 5 mg PO DIRECTED Cancer 07/02/25
levetiracetam 500 mg tablet 500 mg PO BID Neurological 07/02/25
(Keppra) Condition
losartan 100 mg tablet 100 mg PO DAILY Blood Pressure 07/02/25
metoprolol succinate 50 mg 50 mg PO DAILY Blood Pressure 07/02/25
tablet,extended release 24 hr
(Toprol XL)
nitrofurantoin macrocrystal 50 mg 50 mg PO DAILY [employer] 07/02/25
capsule
potassium chloride 20 mEq 20 meq PO DAILY Electrolyte 07/02/25
tablet,extended release Repletion
methocarbamol 500 mg tablet 500 mg PO TID 07/03/25
mirabegron 50 mg tablet,extended 50 mg PO DAILY Urinary Issue 07/04/25
release 24 hr (Myrbetriq)
--- NOTE | 2025-07-06 17:34 | PTCARENOTE ---
Pt tearful. C/o 06/29 lower back pain. MD made aware, new order provided, see MAR.
[2025-07-06] MEDS: LOVENOX 40 MG SC (17:37)
--- NOTE | 2025-07-06 18:00 | PTCARENOTE ---
Bed alarm triggered frequently. Pt stated, 'I am in pain, I can't sit in the chair, I can't lay in the bed, I need to stand, I need to go to the bathroom'. Pt increasingly forgetful and agitated. Pt informed that she has been up to bed side commode
10 times in the last hour. Daughter and grandson at bedside informed this RN that this is how patient gets. Bed alarm triggered approximately 50 times. This RN and two PCT's assisting pt at bedside. Pt assist of two with RW and needs direction.
aware, at bedside. Document Reviewer made aware of need for 1-1 supervision and private room, will inform nightshift RN.
--- NOTE | 2025-07-06 18:23 | PTCARENOTE ---
Pt increasingly agitated and anxious, made aware, new order provided, see MAR. Will continue to monitor.
[2025-07-06] MEDS: DESYREL 50 MG PO (18:33)
--- NOTE | 2025-07-06 19:13 | PTCARENOTE ---
per daughter at bedside, pt increasingly confused and agitated, and stated that this is normal for her.
[2025-07-06] MEDS: REMOVE LIDOCAINE PATCH 2 PATCH REMOVE (22:04)
[2025-07-06] MEDS: MACRODANTIN 50 MG PO (22:06)
[2025-07-06] MEDS: NON-FORMULARY ITEM 5 MG PO (22:07)
[2025-07-06] MEDS: MELATONIN 5 MG PO (22:07)
[2025-07-06 23:28] VITALS: BP 147/78
[2025-07-07] MEDS: TYLENOL 650 MG PO ×5 (00:15→16:37)
[2025-07-07] MEDS: DILAUDID 1.5 MG IV ×2 (01:02→05:15)
[2025-07-07] MEDS: TORADOL 15 MG IV ×2 (02:24→20:24)
[2025-07-07] MEDS: LIDOCAINE 4% PATCH 2 PATCH TOPICAL (04:15)
[2025-07-07] MEDS: MELATONIN 3 MG PO (04:30)
[2025-07-07 07:06] LABS: Hematocrit 38.1 % (37.0-47.0); Hemoglobin 13.0 g/dL (12.0-16.0); Mean Corp Hgb Conc. 34.1 g/dL (33.0-37.0); Mean Corpuscular Volume 89.6 fL (81.0-99.0); Platelet Count 158 10^3/uL (130-400); Red Cell Dist. Width 13.2 % (11.5-14.5)
[2025-07-07 07:25] LABS: Blood Urea Nitrogen 25 mg/dl (7-17); Calcium 9.0 mg/dl (8.4-10.2); Carbon Dioxide 30 mmol/L (22-30); Chloride 97 mmol/L (98-107); Estimated Creatinine Clearance 63 ml/min; Glucose 97 mg/dl (70-99); Magnesium 2.0 mg/dl (1.6-2.3); Potassium 2.8 mmol/L (3.5-5.1); Sodium 135 mmol/L (135-145); eGFR > 60.00
--- NOTE | 2025-07-07 07:45 | W.PN.HOSP.TC ---
Today's Communication/Plan
-
pain control
sleep hygiene
bowel regimen, once suppository
Replete K
PT/OT
Assessment / Plan
Assessment / Plan
Physical Exam
General: no acute distress, appears relatively comfortable at this time
HEENT: NormoCephalic, Moist mucous membranes, Atraumatic, PERRLA and [place] Conjunctivae
Respiratory: Clear
Cardiac: S1/S2 and Regular Rhythm; No Murmur or Rub
GI: Soft, Non Tender, Non Distended and Normal Bowel Sounds; No Organomegaly
Musculoskeletal: No Clubbing, No Cyanosis and No Edema, lower paraspinal tenderness
Skin: No Rash
Neuro/Psych: AO x 3 conversant largely coherent, mentation seems slow at times, patient more confused later in day possible adverse side effect ativan given for MRI,
MRI Brain
1. Mild amount of subarachnoid hemorrhage in the sulci overlying the anterior convexity of the right frontal lobe and mild gyriform signal abnormality in the cortical marie matter of the anterior right frontal lobe which is new from 01/16/2020.
Considering the absence of any acute intracranial hemorrhage seen on the recent CT examination performed 07/02/2025, this is most consistent with subacute petechial hemorrhage (brain contusion) in the cortical marie matter and subacute to chronic
overlying subarachnoid hemorrhage.
2. Mild to moderate diffuse distention of the ventricular system. Diagnostic possibilities are (1) normal pressure communicating hydrocephalus or (2) ex vacuo ventricular dilatation.
3. Moderate white matter leukoaraiosis in the frontal lobes.
4. Mild diffuse cerebral and cerebellar volume loss.
5. Moderate discogenic degenerative disease at C5/C6 with a disc-osteophyte complex causing mild spinal cord compression and central canal stenosis.
MRI Lumbar Spine
1. Small central disc herniation at T10/T11 causing mild spinal cord compression and central canal stenosis.
2. Pain pump catheter in the upper lumbar and thoracic spinal canal.
3. 3 mm grade 1 anterolisthesis of L3 on L4 secondary to severe bilateral facet joint arthrosis. Mild central canal stenosis at L3/L4 which appears similar to 05/19/2024.
4. Severe chronic discogenic degenerative disease at L4/L5 and L5/S1 with partial osseous fusion across the intervertebral discs and L4/L5 facet joints.
5. Mild to moderate bilateral facet joint arthrosis at L5/S1.
6. Mild edema or denervation atrophy in the right posterior inferior paraspinal muscles which appears unchanged.
IMPRESSION:
74-year-old female with past medical history who back pain with failed back surgery status post Medtronic pain pump, status post spinal stimulator, chronic pain requiring breakthrough opioid medications will presents with exacerbation of chronic
back pain likely in the setting of 4 recent fall and plane flight from [place]. Days associated with weakness in bilateral lower extremities as well as some urinary symptoms. Most likely weakness or secondary to uncontrolled pain but cannot
rule out myelopathy entirely. No recent lumbosacral spine imaging with MRI in our system. Patient likely has a high opioid tolerance and will need aggressive pain control.
PLAN:
Back pain -exhibition of back pain secondary to trauma and recent flight.
� MedSurg admit
� Continue patient ongoing pump, pump is due for refill 07/13 as per patient
� Tylenol Q4HWA
� Toradol prn switched to schedule Q6, since switched back to prn w/ clinical improvement
- Protonix gi ppx
� IV Dilaudid 1.5 mg every 3 hours for severe pain
- IV Decadron 4 mg Q8H tapered to home PO 4 mg ThFrSa as is home regimen noted below
� Urinalysis not suggestive of UTI
� MRI lumbar spine appreciated as above, neuro recommended neurosx eval for T10/T11 small disc herniation w mild compression central canal stenosis, discussed with neurosx who recommended outpt follow up.
� PT/OT consultation appreciated Acute Rehab. Physiatry eval however recommending SNF rehab
- Lidocaine patches, Ice packs prn
Significant Precipitous Cognitive decline
Suspect Metabolic encephalopathy vs Delirium d/t pain poor sleep
Hx subarachnoid hemorrhage following fall last month, treated in [place]
Traumatic Brain Injury
Possible Underlying Dementia
-current cognitive impairment likely d/t TBI w possibly underlying dementia contributing as well, recovery of cognitive function from TBI tends to plateau after 6 months but patients may continue to improve or decline after the 6 mo period.
-CT Head appreciated no acute abn's
-Brain MRI appreciated as above, noted possible NPH vs ex vacuo dilatation- more likely dilatation 2/2 TBI vs underlying dementia
-Neuro eval appreciated
-pain control
-cont home trazodone 100 mg HS
-possible worsening delirium d/t ativan given for MRI, avoid/minimize use benzo as possible
Multiple myeloma�
� Continue patient's Revlimid 5 mg at bedtime for the next 21 days
� While on Revlimid pt is on dexamethasone 4 mg on Wednesday, cont
Hypertension
� Continue losartan and metoprolol
Suspect Urinary Frequency due to severe Constipation
-bowel regimen
- Abd X-ray appreciated limited study, no obstruction
- Senokot-S increased to 2 tabs BID, cont Miralax BID, bisacodyl suppository prn, refuses Enema
Hypokalemia
monitor and replete as necessary
scheduled 20 meQ K BID
DVT prophylaxis�Lovenox subcu
CODE STATUS�full code
Discussed with patient and patient's daughter Natalie
I spent a total of 42 minutes with the patient or on the floor. More than 50% of this time involved counseling and coordination of care.
Anticipated Discharge: 24 - 48 hours
Subjective/Interval History
-
Date of Service: July 07, 2025
No acute distress, appears comfortable resting in bed. Fluctuating mental status, noted very confused and hyperactive overnight. At time of evaluation patient was AOx3 conversant and largely coherent. Some confusion noted.
Objective Data
-
Labs:
Laboratory Results
07/07/25
06:28
WBC 5.2
Hgb 13.0
Hct 38.1
Plt Count 158
Sodium 135
Potassium 2.8 L
Chloride 97 L
Carbon Dioxide 30
BUN 25 H
Creatinine 0.7
Glucose 97
Calcium 9.0
Vital Signs:
Vital Signs
Temp Pulse Resp BP Pulse Ox
98.6 F 70 16 147/78 96
07/06/25 23:28 07/06/25 23:28 07/06/25 23:28 07/06/25 23:28 07/06/25 23:28
I&O
07/06/25 07/07/25 07/08/25
06:59 06:59 06:59
Intake Total 1080 / 1080 310 / 310
Balance 1080 / 1080 310 / 310
[2025-07-07 08:06] VITALS: BP 166/75
[2025-07-07] MEDS: MIRALAX 17 GRAMS PO ×2 (09:26→20:20)
[2025-07-07] MEDS: TOPROL XL 50 MG PO (09:26)
[2025-07-07] MEDS: PROTONIX 40 MG PO (09:26)
[2025-07-07] MEDS: CYMBALTA DELAYED RELEASE 60 MG PO (09:26)
[2025-07-07] MEDS: KEPPRA 500 MG PO (09:26)
[2025-07-07] MEDS: SENOKOT-S 2 TABLET PO ×2 (09:26→20:19)
[2025-07-07] MEDS: ASPIR LOW (ENTERIC COATED) 81 MG PO (09:26)
[2025-07-07] MEDS: LIPITOR 20 MG PO (09:26)
[2025-07-07] MEDS: COZAAR 100 MG PO (09:26)
[2025-07-07] MEDS: NON-FORMULARY ITEM 1 UNIT PO (09:27)
[2025-07-07] MEDS: DILAUDID 4 MG PO ×2 (09:31→16:39)
[2025-07-07] MEDS: KCL 40 MEQ PO (09:31)
[2025-07-07] MEDS: KCL 270 MEQ IV (09:34)
[2025-07-07] MEDS: DILAUDID 1 MG IV ×3 (10:14→22:08)
[2025-07-07] MEDS: DECADRON 4 MG PO (10:14)
[2025-07-07] MEDS: NON-FORMULARY ITEM 223 MCG INFUSION (10:15)
[2025-07-07] MEDS: DULCOLAX 10 MG RECTAL (13:53)
[2025-07-07] MEDS: LOVENOX 40 MG SC (16:37)
[2025-07-07 16:58] VITALS: BP 143/71
[2025-07-07] MEDS: KCL 20 MEQ PO (20:17)
[2025-07-07] MEDS: TYLENOL PO ×2 (20:19→23:47)
[2025-07-07] MEDS: REMOVE LIDOCAINE PATCH 2 PATCH REMOVE (20:20)
[2025-07-07] MEDS: KEPPRA 250 MG PO (20:33)
[2025-07-07] MEDS: MELATONIN 5 MG PO (22:02)
[2025-07-07] MEDS: MACRODANTIN 50 MG PO (22:02)
[2025-07-07] MEDS: NON-FORMULARY ITEM 5 MG PO (22:03)
[2025-07-07] MEDS: DESYREL 100 MG PO (22:04)
[2025-07-07 23:20] VITALS: BP 139/72
[2025-07-08] MEDS: TYLENOL PO ×3 (04:04→16:37)
[2025-07-08 07:00] VITALS: BP 152/74
--- NOTE | 2025-07-08 07:02 | W.PN.HOSP.TC ---
Today's Communication/Plan
-
cont pain control
bowel regimen
PT/OT
Discharge planning Rehab
Assessment / Plan
Assessment / Plan
Physical Exam
General: no acute distress, appears relatively comfortable at this time
HEENT: NormoCephalic, Moist mucous membranes, Atraumatic, PERRLA and [place] Conjunctivae
Respiratory: Clear
Cardiac: S1/S2 and Regular Rhythm; No Murmur or Rub
GI: Soft, Non Tender, Non Distended and Normal Bowel Sounds; No Organomegaly
Musculoskeletal: No Clubbing, No Cyanosis and No Edema, lower paraspinal tenderness
Skin: No Rash
Neuro/Psych: AO x 3 conversant largely coherent, mentation seems slow at times
MRI Brain
1. Mild amount of subarachnoid hemorrhage in the sulci overlying the anterior convexity of the right frontal lobe and mild gyriform signal abnormality in the cortical marie matter of the anterior right frontal lobe which is new from 01/16/2020.
Considering the absence of any acute intracranial hemorrhage seen on the recent CT examination performed 07/02/2025, this is most consistent with subacute petechial hemorrhage (brain contusion) in the cortical marie matter and subacute to chronic
overlying subarachnoid hemorrhage.
2. Mild to moderate diffuse distention of the ventricular system. Diagnostic possibilities are (1) normal pressure communicating hydrocephalus or (2) ex vacuo ventricular dilatation.
3. Moderate white matter leukoaraiosis in the frontal lobes.
4. Mild diffuse cerebral and cerebellar volume loss.
5. Moderate discogenic degenerative disease at C5/C6 with a disc-osteophyte complex causing mild spinal cord compression and central canal stenosis.
MRI Lumbar Spine
1. Small central disc herniation at T10/T11 causing mild spinal cord compression and central canal stenosis.
2. Pain pump catheter in the upper lumbar and thoracic spinal canal.
3. 3 mm grade 1 anterolisthesis of L3 on L4 secondary to severe bilateral facet joint arthrosis. Mild central canal stenosis at L3/L4 which appears similar to 05/19/2024.
4. Severe chronic discogenic degenerative disease at L4/L5 and L5/S1 with partial osseous fusion across the intervertebral discs and L4/L5 facet joints.
5. Mild to moderate bilateral facet joint arthrosis at L5/S1.
6. Mild edema or denervation atrophy in the right posterior inferior paraspinal muscles which appears unchanged.
IMPRESSION:
74-year-old female with past medical history who back pain with failed back surgery status post Medtronic pain pump, status post spinal stimulator, chronic pain requiring breakthrough opioid medications will presents with exacerbation of chronic
back pain likely in the setting of 4 recent fall and plane flight from [place]. Days associated with weakness in bilateral lower extremities as well as some urinary symptoms. Most likely weakness or secondary to uncontrolled pain but cannot
rule out myelopathy entirely. No recent lumbosacral spine imaging with MRI in our system. Patient likely has a high opioid tolerance and will need aggressive pain control.
PLAN:
Back pain -exhibition of back pain secondary to trauma and recent flight.
� MedSurg admit
� Continue patient ongoing pump, pump is due for refill 07/13 as per patient
� Tylenol Q4HWA
� Toradol prn switched to schedule Q6, since switched back to prn w/ clinical improvement
- Protonix gi ppx
- Home PO Dilaudid 4mg Q6HPRN
� IV Dilaudid 1 mg every 3 hours for severe breakthrough pain
- IV Decadron 4 mg Q8H tapered to home PO 4 mg ThFrSa as is home regimen noted below
� Urinalysis not suggestive of UTI
� MRI lumbar spine appreciated as above, neuro recommended neurosx eval for T10/T11 small disc herniation w mild compression central canal stenosis, discussed with neurosx who recommended outpt follow up.
� PT/OT consultation appreciated Acute Rehab. Physiatry eval however recommending SNF rehab
- Lidocaine patches, Ice packs prn
Significant Precipitous Cognitive decline
Suspect Metabolic encephalopathy vs Delirium d/t pain poor sleep
Hx subarachnoid hemorrhage following fall last month, treated in [place]
Traumatic Brain Injury
Possible Underlying Dementia
-current cognitive impairment likely d/t TBI w possibly underlying dementia contributing as well, recovery of cognitive function from TBI tends to plateau after 6 months but patients may continue to improve or decline after the 6 mo period.
-CT Head appreciated no acute abn's
-Brain MRI appreciated as above, noted possible NPH vs ex vacuo dilatation- more likely dilatation 2/2 TBI vs underlying dementia
-Neuro eval appreciated
-pain control
-cont home trazodone 100 mg HS
-possible worsening delirium d/t ativan given for MRI, avoid/minimize use benzo as possible
Multiple myeloma�
� Continue patient's Revlimid 5 mg at bedtime for the next 21 days
� While on Revlimid pt is on dexamethasone 4 mg on Wednesday, cont
Hypertension
� Continue losartan and metoprolol
Suspect Urinary Frequency due to severe Constipation
-bowel regimen
- Abd X-ray appreciated limited study, no obstruction
- Senokot-S increased to 2 tabs BID, cont Miralax BID, bisacodyl suppository prn, refuses Enema
Hypokalemia
monitor and replete as necessary
scheduled 20 meQ K BID
DVT prophylaxis�Lovenox subcu
CODE STATUS�full code
Discussed with patient and patient's daughter Elba
I spent a total of 39 minutes with the patient or on the floor. More than 50% of this time involved counseling and coordination of care.
Anticipated Discharge: 24 - 48 hours
Subjective/Interval History
-
Date of Service: July 08, 2025
No acute distress, sitting up comfortably in bed, some improvement in constipation noted, had a small bowel movement this morning, patient also notes urinary frequency has improved. Daughter Elba present during evaluation.
Objective Data
-
Labs:
Laboratory Results
07/08/25
05:50
Sodium Pending
Potassium Pending
Chloride Pending
Carbon Dioxide Pending
BUN Pending
Creatinine Pending
Glucose Pending
Calcium Pending
Vital Signs:
Vital Signs
Temp Pulse Resp BP Pulse Ox
98.5 F 77 18 139/72 96
07/07/25 23:20 07/07/25 23:20 07/07/25 23:20 07/07/25 23:20 07/07/25 23:20
I&O
07/07/25 07/08/25 07/09/25
06:59 06:59 06:59
Intake Total 310 / 310 510 / 510
Balance 310 / 310 510 / 510
[2025-07-08 07:29] LABS: Blood Urea Nitrogen 25 mg/dl (7-17); Calcium 9.0 mg/dl (8.4-10.2); Carbon Dioxide 28 mmol/L (22-30); Chloride 103 mmol/L (98-107); Estimated Creatinine Clearance 55 ml/min; Glucose 68 mg/dl (70-99); Potassium 3.9 mmol/L (3.5-5.1); Sodium 137 mmol/L (135-145); eGFR > 60.00
[2025-07-08 09:54] VITALS: BP 124/62
[2025-07-08] MEDS: COZAAR 100 MG PO (09:58)
[2025-07-08] MEDS: ASPIR LOW (ENTERIC COATED) 81 MG PO (09:58)
[2025-07-08] MEDS: TYLENOL 650 MG PO ×2 (09:58→21:16)
[2025-07-08] MEDS: KEPPRA 250 MG PO (09:58)
[2025-07-08] MEDS: CYMBALTA DELAYED RELEASE 60 MG PO (09:58)
[2025-07-08] MEDS: TOPROL XL 50 MG PO (09:58)
[2025-07-08] MEDS: SENOKOT-S 2 TABLET PO (09:58)
[2025-07-08] MEDS: PROTONIX 40 MG PO (09:58)
[2025-07-08] MEDS: LIPITOR 20 MG PO (09:58)
[2025-07-08] MEDS: MIRALAX 17 GRAMS PO (09:59)
[2025-07-08] MEDS: NON-FORMULARY ITEM 223 MCG INFUSION (10:00)
[2025-07-08] MEDS: LIDOCAINE 4% PATCH TOPICAL (10:00)
[2025-07-08] MEDS: NON-FORMULARY ITEM 1 UNIT PO (10:01)
[2025-07-08] MEDS: KCL PO (10:05)
[2025-07-08] MEDS: DILAUDID 4 MG PO ×2 (11:39→21:15)
[2025-07-08 15:00] VITALS: BP 103/59
[2025-07-08] MEDS: LOVENOX 40 MG SC (17:10)
[2025-07-08] MEDS: MIRALAX PO (20:18)
[2025-07-08] MEDS: SENOKOT-S PO (20:18)
[2025-07-08] MEDS: REMOVE LIDOCAINE PATCH 2 PATCH REMOVE (20:18)
[2025-07-08] MEDS: MELATONIN 5 MG PO (21:15)
[2025-07-08] MEDS: DESYREL 100 MG PO (21:15)
[2025-07-08] MEDS: MACRODANTIN 50 MG PO (21:15)
[2025-07-08] MEDS: NON-FORMULARY ITEM 5 MG PO (21:17)
[2025-07-09] MEDS: TYLENOL PO ×3 (00:20→21:00)
[2025-07-09 06:08] LABS: Hematocrit 39.5 % (37.0-47.0); Hemoglobin 12.7 g/dL (12.0-16.0); Mean Corp Hgb Conc. 32.2 g/dL (33.0-37.0); Mean Corpuscular Volume 94.5 fL (81.0-99.0); Platelet Count 154 10^3/uL (130-400); Red Cell Dist. Width 13.8 % (11.5-14.5)
[2025-07-09 06:27] LABS: Blood Urea Nitrogen 28 mg/dl (7-17); Calcium 9.2 mg/dl (8.4-10.2); Carbon Dioxide 27 mmol/L (22-30); Chloride 104 mmol/L (98-107); Estimated Creatinine Clearance 49 ml/min; Glucose 88 mg/dl (70-99); Potassium 3.9 mmol/L (3.5-5.1); Sodium 136 mmol/L (135-145); eGFR > 60.00
[2025-07-09 07:36] VITALS: BP 108/51
[2025-07-09] MEDS: LIPITOR 20 MG PO (08:11)
[2025-07-09] MEDS: CYMBALTA DELAYED RELEASE 60 MG PO (08:11)
[2025-07-09] MEDS: LIDOCAINE 4% PATCH 2 PATCH TOPICAL (08:11)
[2025-07-09] MEDS: KCL 20 MEQ PO (08:11)
[2025-07-09] MEDS: ASPIR LOW (ENTERIC COATED) 81 MG PO (08:11)
[2025-07-09] MEDS: TYLENOL 650 MG PO ×4 (08:12→23:16)
[2025-07-09] MEDS: PROTONIX 40 MG PO (08:12)
[2025-07-09] MEDS: COZAAR 100 MG PO (08:12)
[2025-07-09] MEDS: TOPROL XL 50 MG PO (08:12)
[2025-07-09] MEDS: NON-FORMULARY ITEM 223 MCG INFUSION (08:12)
[2025-07-09] MEDS: DILAUDID 4 MG PO ×3 (08:12→21:21)
[2025-07-09] MEDS: MIRALAX PO ×2 (08:13→20:52)
[2025-07-09] MEDS: SENOKOT-S PO ×2 (08:14→20:52)
[2025-07-09] MEDS: NON-FORMULARY ITEM 1 UNIT PO (08:14)
--- NOTE | 2025-07-09 08:51 | W.PN.HOSP.TC ---
Today's Communication/Plan
-
Discharge planning Rehab
supportive care likely viral URI, COVID/FLu neg
Assessment / Plan
Assessment / Plan
Physical Exam
General: no acute distress, appears relatively comfortable at this time
HEENT: NormoCephalic, Moist mucous membranes, Atraumatic, PERRLA and [place] Conjunctivae
Respiratory: Clear
Cardiac: S1/S2 and Regular Rhythm; No Murmur or Rub
GI: Soft, Non Tender, Non Distended and Normal Bowel Sounds; No Organomegaly
Musculoskeletal: No Clubbing, No Cyanosis and No Edema, lower paraspinal tenderness
Skin: No Rash
Neuro/Psych: AO x 3 conversant largely coherent, mentation seems slow at times
MRI Brain
1. Mild amount of subarachnoid hemorrhage in the sulci overlying the anterior convexity of the right frontal lobe and mild gyriform signal abnormality in the cortical marie matter of the anterior right frontal lobe which is new from 01/16/2020.
Considering the absence of any acute intracranial hemorrhage seen on the recent CT examination performed 07/02/2025, this is most consistent with subacute petechial hemorrhage (brain contusion) in the cortical marie matter and subacute to chronic
overlying subarachnoid hemorrhage.
2. Mild to moderate diffuse distention of the ventricular system. Diagnostic possibilities are (1) normal pressure communicating hydrocephalus or (2) ex vacuo ventricular dilatation.
3. Moderate white matter leukoaraiosis in the frontal lobes.
4. Mild diffuse cerebral and cerebellar volume loss.
5. Moderate discogenic degenerative disease at C5/C6 with a disc-osteophyte complex causing mild spinal cord compression and central canal stenosis.
MRI Lumbar Spine
1. Small central disc herniation at T10/T11 causing mild spinal cord compression and central canal stenosis.
2. Pain pump catheter in the upper lumbar and thoracic spinal canal.
3. 3 mm grade 1 anterolisthesis of L3 on L4 secondary to severe bilateral facet joint arthrosis. Mild central canal stenosis at L3/L4 which appears similar to 05/19/2024.
4. Severe chronic discogenic degenerative disease at L4/L5 and L5/S1 with partial osseous fusion across the intervertebral discs and L4/L5 facet joints.
5. Mild to moderate bilateral facet joint arthrosis at L5/S1.
6. Mild edema or denervation atrophy in the right posterior inferior paraspinal muscles which appears unchanged.
IMPRESSION:
74-year-old female with past medical history who back pain with failed back surgery status post Medtronic pain pump, status post spinal stimulator, chronic pain requiring breakthrough opioid medications will presents with exacerbation of chronic
back pain likely in the setting of 4 recent fall and plane flight from [place]. Days associated with weakness in bilateral lower extremities as well as some urinary symptoms. Most likely weakness or secondary to uncontrolled pain but cannot
rule out myelopathy entirely. No recent lumbosacral spine imaging with MRI in our system. Patient likely has a high opioid tolerance and will need aggressive pain control.
PLAN:
Back pain -exhibition of back pain secondary to trauma and recent flight.
� MedSurg admit
� Continue patient ongoing pump, pump is due for refill 07/13 as per patient
� Tylenol Q4HWA
� Toradol prn switched to schedule Q6, since switched back to prn w/ clinical improvement
- Protonix gi ppx
- Home PO Dilaudid 4mg Q6HPRN
� IV Dilaudid 1 mg every 3 hours for severe breakthrough pain
- IV Decadron 4 mg Q8H tapered to home PO 4 mg ThFrSa as is home regimen noted below
� Urinalysis not suggestive of UTI
� MRI lumbar spine appreciated as above, neuro recommended neurosx eval for T10/T11 small disc herniation w mild compression central canal stenosis, discussed with neurosx who recommended outpt follow up.
� PT/OT consultation appreciated Acute Rehab. Physiatry eval however recommending SNF rehab
- Lidocaine patches, Ice packs prn
Significant Precipitous Cognitive decline
Suspect Metabolic encephalopathy vs Delirium d/t pain poor sleep
Hx subarachnoid hemorrhage following fall last month, treated in [place]
Traumatic Brain Injury
Possible Underlying Dementia
-current cognitive impairment likely d/t TBI w possibly underlying dementia contributing as well, recovery of cognitive function from TBI tends to plateau after 6 months but patients may continue to improve or decline after the 6 mo period.
-CT Head appreciated no acute abn's
-Brain MRI appreciated as above, noted possible NPH vs ex vacuo dilatation- more likely dilatation 2/2 TBI vs underlying dementia
-Neuro eval appreciated
-pain control
-cont home trazodone 100 mg HS
-possible worsening delirium d/t ativan given for MRI, avoid/minimize use benzo as possible
Multiple myeloma�
� Continue patient's Revlimid 5 mg at bedtime for the next 21 days
� While on Revlimid pt is on dexamethasone 4 mg on Wednesday, cont
Hypertension
� Continue losartan and metoprolol
Suspect Urinary Frequency due to severe Constipation (less likely, urinary freq persisting despite resolution constipation)
-bowel regimen
- Abd X-ray appreciated limited study, no obstruction
- Senokot-S increased to 2 tabs BID, cont Miralax BID, bisacodyl suppository prn, refuses Enema
-constipation since resolved
Hypokalemia
monitor and replete as necessary
scheduled 20 meQ K BID
07/09 Upper Respiratory Viral infection
-COVID/Flu neg
-supportive care
-mucinex
-prn robitussin tessalon
DVT prophylaxis�Lovenox subcu
CODE STATUS�full code
Discussed with patient and patient's daughter Natalie CINDY
I spent a total of 39 minutes with the patient or on the floor. More than 50% of this time involved counseling and coordination of care.
Anticipated Discharge: Within 24 hours
Subjective/Interval History
-
Date of Service: July 09, 2025
constipation resolved. Reports persistent urinary frequency but no dysuria. Patient also coughing, likely common cold.
Objective Data
-
Labs:
Laboratory Results
07/09/25
05:43
WBC 6.7
Hgb 12.7
Hct 39.5
Plt Count 154
Sodium 136
Potassium 3.9
Chloride 104
Carbon Dioxide 27
BUN 28 H
Creatinine 0.9
Glucose 88
Calcium 9.2
Vital Signs:
Vital Signs
Temp Pulse Resp BP Pulse Ox
97.7 F 70 16 108/51 99
07/09/25 07:36 07/09/25 07:36 07/09/25 07:36 07/09/25 07:36 07/09/25 07:36
I&O
07/08/25 07/09/25 07/10/25
06:59 06:59 06:59
Intake Total 930 / 930 900 / 900
Balance 930 / 930 900 / 900
[2025-07-09] MEDS: MUCINEX 600 MG PO ×2 (12:44→20:52)
--- NOTE | 2025-07-09 13:46 | CM ---
[facility] accept patient . Pt will need to bring Revlimid from home.
Spoke with pt explained [facility] can accept her for SNF.
IMM reviewed signed on chart.
PLAn To [facility]
[2025-07-09 14:08] LABS: COVID-19 Antigen Negative (Negative)
[2025-07-09 15:00] VITALS: BP 106/52
[2025-07-09] MEDS: LOVENOX 40 MG SC (17:40)
[2025-07-09] MEDS: REMOVE LIDOCAINE PATCH 2 PATCH REMOVE (20:52)
[2025-07-09] MEDS: DESYREL 100 MG PO (21:23)
[2025-07-09] MEDS: MACRODANTIN 50 MG PO (21:23)
[2025-07-09] MEDS: MELATONIN 5 MG PO (21:24)
[2025-07-09] MEDS: NON-FORMULARY ITEM 5 MG PO (21:25)
[2025-07-09 23:00] VITALS: BP 124/60
[2025-07-10] MEDS: TYLENOL PO (03:48)
[2025-07-10 07:24] VITALS: BP 115/58
--- NOTE | 2025-07-10 08:11 | W.PN.HOSP.TC ---
Today's Communication/Plan
-
discharge
Assessment / Plan
Assessment / Plan
Physical Exam
General: no acute distress, appears relatively comfortable at this time
HEENT: NormoCephalic, Moist mucous membranes, Atraumatic, PERRLA and [place] Conjunctivae
Respiratory: Clear
Cardiac: S1/S2 and Regular Rhythm; No Murmur or Rub
GI: Soft, Non Tender, Non Distended and Normal Bowel Sounds; No Organomegaly
Musculoskeletal: No Clubbing, No Cyanosis and No Edema, lower paraspinal tenderness
Skin: No Rash
Neuro/Psych: AO x 3 conversant largely coherent, mentation seems slow at times
MRI Brain
1. Mild amount of subarachnoid hemorrhage in the sulci overlying the anterior convexity of the right frontal lobe and mild gyriform signal abnormality in the cortical marie matter of the anterior right frontal lobe which is new from 01/16/2020.
Considering the absence of any acute intracranial hemorrhage seen on the recent CT examination performed 07/02/2025, this is most consistent with subacute petechial hemorrhage (brain contusion) in the cortical marie matter and subacute to chronic
overlying subarachnoid hemorrhage.
2. Mild to moderate diffuse distention of the ventricular system. Diagnostic possibilities are (1) normal pressure communicating hydrocephalus or (2) ex vacuo ventricular dilatation.
3. Moderate white matter leukoaraiosis in the frontal lobes.
4. Mild diffuse cerebral and cerebellar volume loss.
5. Moderate discogenic degenerative disease at C5/C6 with a disc-osteophyte complex causing mild spinal cord compression and central canal stenosis.
MRI Lumbar Spine
1. Small central disc herniation at T10/T11 causing mild spinal cord compression and central canal stenosis.
2. Pain pump catheter in the upper lumbar and thoracic spinal canal.
3. 3 mm grade 1 anterolisthesis of L3 on L4 secondary to severe bilateral facet joint arthrosis. Mild central canal stenosis at L3/L4 which appears similar to 05/19/2024.
4. Severe chronic discogenic degenerative disease at L4/L5 and L5/S1 with partial osseous fusion across the intervertebral discs and L4/L5 facet joints.
5. Mild to moderate bilateral facet joint arthrosis at L5/S1.
6. Mild edema or denervation atrophy in the right posterior inferior paraspinal muscles which appears unchanged.
IMPRESSION:
74-year-old female with past medical history who back pain with failed back surgery status post Medtronic pain pump, status post spinal stimulator, chronic pain requiring breakthrough opioid medications will presents with exacerbation of chronic
back pain likely in the setting of 4 recent fall and plane flight from [place]. Days associated with weakness in bilateral lower extremities as well as some urinary symptoms. Most likely weakness or secondary to uncontrolled pain but cannot
rule out myelopathy entirely. No recent lumbosacral spine imaging with MRI in our system. Patient likely has a high opioid tolerance and will need aggressive pain control.
PLAN:
Back pain -exhibition of back pain secondary to trauma and recent flight.
� MedSurg admit
� Continue patient ongoing pump, pump is due for refill 07/13 as per patient
� Tylenol Q4HWA
� Toradol prn switched to schedule Q6, since switched back to prn w/ clinical improvement
- Protonix gi ppx
- Home PO Dilaudid 4mg Q6HPRN
� IV Dilaudid 1 mg every 3 hours for severe breakthrough pain
- IV Decadron 4 mg Q8H tapered to home PO 4 mg ThFrSa as is home regimen noted below
� Urinalysis not suggestive of UTI
� MRI lumbar spine appreciated as above, neuro recommended neurosx eval for T10/T11 small disc herniation w mild compression central canal stenosis, discussed with neurosx who recommended outpt follow up.
� PT/OT consultation appreciated Acute Rehab. Physiatry eval however recommending SNF rehab
- Lidocaine patches, Ice packs prn
Significant Precipitous Cognitive decline
Suspect Metabolic encephalopathy vs Delirium d/t pain poor sleep
Hx subarachnoid hemorrhage following fall last month, treated in [place]
Traumatic Brain Injury
Possible Underlying Dementia
-current cognitive impairment likely d/t TBI w possibly underlying dementia contributing as well, recovery of cognitive function from TBI tends to plateau after 6 months but patients may continue to improve or decline after the 6 mo period.
-CT Head appreciated no acute abn's
-Brain MRI appreciated as above, noted possible NPH vs ex vacuo dilatation- more likely dilatation 2/2 TBI vs underlying dementia
-Neuro eval appreciated
-pain control
-cont home trazodone 100 mg HS
-possible worsening delirium d/t ativan given for MRI, avoid/minimize use benzo as possible, mental status since improved/likely baseline at this time.
Multiple myeloma�
� Continue patient's Revlimid 5 mg at bedtime for the next 21 days
� While on Revlimid pt is on dexamethasone 4 mg on Wednesday, cont
Hypertension
� Continue losartan and metoprolol
Suspect Urinary Frequency due to severe Constipation (less likely, urinary freq persisting despite resolution constipation)
-bowel regimen
- Abd X-ray appreciated limited study, no obstruction
- Senokot-S increased to 2 tabs BID, cont Miralax BID, bisacodyl suppository prn, refuses Enema
-constipation since resolved
Hypokalemia
monitor and replete as necessary
scheduled 20 meQ K Daily
07/09 Upper Respiratory Viral infection
-COVID/Flu neg
-supportive care
-mucinex
-prn robitussin tessalon
DVT prophylaxis�Lovenox subcu
CODE STATUS�full code
medically stable for discharge SNF rehab with outpatient follow up recommendations.
Discussed with patient and patient's daughter Natalie CINDY
Total Time Preparing Discharge __40 minutes including examination of the patient, summary of the hospital stay, instructions for continuing care to all relevant caregivers; and preparation of discharge records, prescriptions, and referral
forms if necessary.
Anticipated Discharge: Today
Subjective/Interval History
-
Date of Service: July 10, 2025
seen and examined at bedside in no acute distress, sitting up comfortably in chair. overall reports feeling well. Looking forward to rehab.
Objective Data
-
Vital Signs:
Vital Signs
Temp Pulse Resp BP Pulse Ox
97.3 F 60 16 115/58 97
07/10/25 07:24 07/10/25 07:24 07/10/25 07:24 07/10/25 07:24 07/10/25 07:24
I&O
07/09/25 07/10/25 07/11/25
06:59 06:59 06:59
Intake Total 900 / 900 1200 / 1200
Balance 900 / 900 1200 / 1200
[2025-07-10] MEDS: COZAAR 100 MG PO (08:33)
[2025-07-10] MEDS: MUCINEX 600 MG PO (08:33)
[2025-07-10] MEDS: LIPITOR 20 MG PO (08:33)
[2025-07-10] MEDS: KCL 20 MEQ PO (08:34)
[2025-07-10] MEDS: ASPIR LOW (ENTERIC COATED) 81 MG PO (08:34)
[2025-07-10] MEDS: TYLENOL 650 MG PO ×2 (08:34→11:55)
[2025-07-10] MEDS: PROTONIX 40 MG PO (08:34)
[2025-07-10] MEDS: CYMBALTA DELAYED RELEASE 60 MG PO (08:34)
[2025-07-10] MEDS: DILAUDID 4 MG PO ×2 (08:34→14:53)
[2025-07-10] MEDS: TOPROL XL 50 MG PO (08:34)
[2025-07-10] MEDS: NON-FORMULARY ITEM 1 UNIT PO (08:37)
[2025-07-10] MEDS: NON-FORMULARY ITEM 223 MCG INFUSION (08:37)
[2025-07-10] MEDS: LIDOCAINE 4% PATCH 2 PATCH TOPICAL (08:37)
[2025-07-10] MEDS: SENOKOT-S PO (08:45)
[2025-07-10] MEDS: MIRALAX PO (08:45)
--- NOTE | 2025-07-10 12:16 | CM ---
CM reviewed pt with attending- ready for dc
CM confirmed SNF bed with admissions/[facility]
Pt with outpt pain management to refill pain med pump on 07/[address] Raoul Muro/[facility]
CM spoke with dtr who confirmed she will transport to appt- SNF admissions in agreement with plan
Home med/Revlimid currently brought into hospital from home
Discussion with nursing who will ensure home meds are given to pt to transport to SNF with her
Hard scripts requested for narcs per SNF request
Dtr will transport to SNF as pt without medical necessity for BLS and declined WC van
Discharge Disposition- [facility] via dtr transport
Phone- [phone] Fax- [phone]
--- NOTE | 2025-07-10 14:35 | W.DCSUMMARY ---
Discharge Summary
Discharge Data
Date of Admission: 07/02/25
Date of Discharge: 07/10/25
-
Pending Results: No
Discharge Plan
-
Patient Disposition: Assisted/SNF
Discharge Diagnosis/Procedures: Acute on Chronic Back Pain
Metabolic encephalopathy vs Delirium d/t pain poor sleep
History subarachnoid hemorrhage
Traumatic Brain Injury
Ex vacuo dilatation vs Normal Pressure Hydrocephalus noted on MRI Brain
Possible Underlying Dementia
Multiple myeloma
Hypertension
Hypokalemia
Upper Respiratory Viral infection, COVID/Flu neg
Condition: Fair
Diet: Regular
Activity: With assistance, As tolerated and With Walker
Driving Restrictions: Not until seen by your Dr
Bathing Restrictions: None
Blood Work: Repeat BMP with primary care provider in 1 week of discharge.
Other Services: PT and OT
Activity Restrictions/Additional Instructions:
Follow up with primary care provider in 1 week of discharge and neurology and neurosurgeon in 1 month of discharge. Keep your appointment with [facility] 07/13/25Wednesday.
Scheduled Tylenol three times a day prescribed for back pain.
Lidocaine patches also prescribed for back pain.
Senokot-S prescribed for opiate induced constipation prophylaxis, hold when diarrhea.
Completed Keppra seizure prophylaxis for past subarachnoid hemorrhage/head trauma.
Methocarbamol discontinued due to concerns confusion/polypharmacy.
Please take medications as prescribed/recommended and follow up with primary care provider and/or other healthcare provider involved in your care for refills and/or further adjustment to your medication regimen as necessary.
Referrals:
Helga Cummings PA [Family Provider, Family Practice] - in one week
Suleman Angeles MD [Active, Neurology] - in one month
Radha Funk MD [Active, Neurosurgery] - in one month
Prescriptions:
New
acetaminophen 325 mg Tablet
650 mg PO TID Qty: 21 0RF
lidocaine 4 % Adhesive Patch,Medicated
2 patch topical DAILY Qty: 15 0RF
Rx Instructions:
Back pain
sennosides-docusate sodium [Senna Plus] 8.6-50 mg Tablet
1 tab PO BID Qty: 60 0RF
Rx Instructions:
Hold if diarrhea
Continued
Fentanyl Pump.Resvr
251 mcg INFUSION DAILY
Patient Comments:
with Baclofin 63 ug and bupivicaine 2.3mg via pump over 24 hrs
aspirin 81 MG tablet,delayed release (DR/EC)
81 mg PO DAILY
trazodone 50 MG tablet
100 mg PO HSPRN PRN (Reason: sleep)
nitrofurantoin macrocrystal 50 mg Capsule
50 mg PO DAILY
atorvastatin [Lipitor] 20 mg Tablet
20 mg PO DAILY
metoprolol succinate [Toprol XL] 50 mg Tablet Extended Release 24 Hr
50 mg PO DAILY
lenalidomide 5 mg Capsule
5 mg PO DIRECTED
Rx Instructions:
for 21 days on and 7 days off
potassium chloride 20 mEq Tablet Extended Release
20 meq PO DAILY
mirabegron [Myrbetriq] 50 mg Tablet Extended Release 24 Hr
50 mg PO DAILY
hydromorphone 4 mg Tablet
4 mg PO Q6HPRN PRN (Reason: severe pains) Qty: 12 0RF
losartan 100 mg Tablet
100 mg PO DAILY Qty: 30 0RF
duloxetine 60 mg Capsule,Delayed Release(Dr/Ec)
60 mg PO DAILY Qty: 30 0RF
dexamethasone 4 mg Tablet
4 mg PO THFRSA@0800
Rx Instructions:
take when on Revlimid. Hold when off
Discontinued
levetiracetam [Keppra] 500 mg Tablet
500 mg PO BID
methocarbamol 500 mg Tablet
500 mg PO TID
Discharge Orders:
Discharge Patient (As Directed); Ordered 07/10/25
Ordered By: Archana Phoenix
Discharge Date and Time
Print Language: URDU
[2025-07-10 15:00] VITALS: BP 108/57
== END 2025-07-10 16:30 | DRG 551 ==
LOC: 3 WEST ACU 15:23
PROVIDERS: ADMITTING PHYSICIAN Internal Medicine; ATTENDING PHYSICIAN Internal Medicine; CONSULT PHYSICIAN Physical Medicine & Rehabilitation; CONSULT PHYSICIAN Psychiatry & Neurology Neurology; EMERGENCY PHYSICIAN Student in an Organized Health Care Education/Training Program; FAMILY PHYSICIAN Physician Assistant Medical
DX: M54.9 Dorsalgia, unspecified (principal); G93.41 Metabolic encephalopathy; C90.00 Multiple myeloma not having achieved remission; I10 Essential (primary) hypertension; K59.00 Constipation, unspecified; E87.6 Hypokalemia; Z11.52 Encounter for screening for COVID-19; B34.9 Viral infection, unspecified; D64.9 Anemia, unspecified; G89.29 Other chronic pain; Z79.899 Other long term (current) drug therapy; Z85.51 Personal history of malignant neoplasm of bladder; Z90.711 Acquired absence of uterus with remaining cervical stump; Z91.81 History of falling
CPT/HCPCS: 70450; 70551; 72131; 72148; 74018; 76700; 80048; 80053; 81003; 81015; 82140; 83735; 84100; 85025; 85027; 87086; 87502; 87811; 96374; 96375; 96376; 97116; 97129; 97163; 97167; 97530; 97535; 99285